=== PATIENT | male | born 1965 | race Caucasian/White ===

== ENCOUNTER → 2024-05-05 13:59 | Outpatient (BNVA) | payer MEDICARE, SELFPAY | PROVIDERS: PCP Nurse Practitioner Family; Referring Provider Nurse Practitioner Family; Visit Provider Podiatrist | DX: B35.1 Tinea unguium (principal); L60.3 Nail dystrophy | CPT/HCPCS: 99204 ==

== ENCOUNTER 2024-06-25 10:10 | Inpatient (IN) | payer MEDICARE, SELFPAY ==
[2024-06-25] VITALS (33 sets, daily range): BP systolic 105–151; BP diastolic 67–109; PULSE 51–69; RESP 10–18; TEMP 36.3–36.6; O2SAT 92–98
--- NOTE | 2024-06-25 10:42 | ED.GENADUL_ITS ---
Discharge Plan Disposition Patient Disposition: Admit to [facility] Condition: Stable Discharge Details Chief Complaint: DrugWithdr/MAT Clinical Impression: Alcohol abuse, Alcohol withdrawal, Benzodiazepine withdrawal Admit Date/Time: 06/25/24 14:19 Admit Provider: Cameron Garza Attending Provider: Cameron Garza Primary Care Provider: Dara Kendrick ED Provider: Magda Michael Discharge Data Discharge Date/Time-TO BE ENTERED AT DEPARTURE: 06/25/24 15:58 HPI General Date/Time Provider Initiated Documentation: 06/25/24 10:42 . Limitations to Documentation: no limitations . Information obtained by: patient, RN/MD ([facility] provider called prior to him coming in) and RN notes reviewed . History of Present Illness 58 year old M presents to the emergency department with the chief complaint of Alcohol and benzodiazepine withdrawal, described as moderate and similar to prior episodes, Patient started experiencing this hour(s) and it has been constant. No relieving factors improve symptom(s), No exacerbating factors reported . Patient notes no other symptoms.. Patient did receive the following treatments prior to arrival, none Related Data Home Medications ?Medication ?Instructions ?Recorded ?Confirmed albuterol sulfate 90 mcg/actuation 2 puff inhalation Q4H 03/10/24 06/25/24 aerosol inhaler (ProAir HFA) buprenorphine 8 mg-naloxone 2 mg 1 film buccal BID 03/10/24 06/25/24 sublingual film (Suboxone) cholecalciferol (vitamin D3) 125 125 mcg PO DAILY 03/10/24 06/25/24 mcg (5,000 unit) capsule clonazepam 1 mg tablet 1 mg PO DAILY 03/10/24 06/25/24 fluticasone propionate 230 2 puff inhalation BID 03/10/24 06/25/24 mcg-salmeterol 21 mcg/actuation HFA inhaler (Advair HFA) fluticasone propionate 50 1 spray intranasal BID 03/10/24 06/25/24 mcg/actuation nasal spray,suspension (Allergy Relief (fluticasone)) gabapentin 400 mg capsule 400 mg PO TID 03/10/24 06/25/24 ipratropium bromide 0.02 % 2.5 ml inhalation BID 03/10/24 06/25/24 solution for inhalation ipratropium bromide 42 mcg (0.06 2 spray intranasal BID 03/10/24 06/25/24 %) nasal spray levothyroxine 150 mcg tablet 150 mcg PO DAILY 03/10/24 06/25/24 lithium carbonate 450 mg 450 mg PO DAILY 03/10/24 06/25/24 tablet,extended release mecobalamin (vitamin B12) 1,000 1,000 mcg PO DAILY 03/10/24 06/25/24 mcg chewable tablet metoprolol succinate 50 mg 100 mg PO DAILY 03/10/24 06/25/24 tablet,extended release 24 hr ketoconazole 2 % topical cream 1 applic topical DAILY #120 grams 05/05/24 06/25/24 buprenorphine 12 mg-naloxone 3 mg 1 film sublingual DAILY 06/25/24 06/25/24 sublingual film olanzapine 5 mg tablet 5 mg PO HS PRN 06/25/24 06/25/24 Previous Rx's ?Medication ?Instructions ?Recorded ketoconazole 2 % topical cream 1 applic topical DAILY #120 grams 05/05/24 Allergies Allergy/AdvReac Type Severity Reaction Status Date / Time ethinyl estradiol (From Allergy Unknown Unknown Verified 03/10/24 10:34 Seasonale (91)) levonorgestrel (From Allergy Unknown Unknown Verified 03/10/24 10:34 Seasonale (91)) phenobarbital Allergy Unknown Unknown Verified 03/10/24 10:34 cats Allergy Unknown Unknown Uncoded 03/10/24 10:34 General Stated Complaint: DrugWithdr/MAT JARVIS: 3 Review of Systems Constitutional Constitutional: Reports as per HPI, Denies fever(s), Denies headache(s) and Denies weakness Eyes Eyes: Denies change in vision ENT Ears, Nose, Mouth, and Throat: Denies headache(s) Cardiovascular Cardiovascular: Reports as per HPI, Denies chest pain, Denies lightheadedness, Denies dyspnea and Denies dyspnea on exertion Respiratory Respiratory: Reports as per HPI, Denies cough, Denies dyspnea and Denies dyspnea on exertion Gastrointestinal Gastrointestinal: Reports as per HPI, Denies abdominal pain, Denies change in bowel habits and Denies vomiting Genitourinary Genitourinary: Denies system reviewed and no additional complaints, except as do cumented (denies any change in urinary habits) Musculoskeletal Musculoskeletal: Denies abnormal gait Integumentary/Breasts Skin/Breast: Reports as per HPI and Denies rash Neurologic Neurologic: Denies abnormal movements, Denies abnormal speech, Denies abnormal gait, Denies headache(s), Denies paresthesias and Denies weakness Exam Const General: cooperative, not healthy appearing, uncomfortable, no acute distress, well developed, well groomed, anxious and ill appearing chronically Nutritional Appearance: average body habitus and well nourished Orientation: alert and awake Eyes General: appearance normal, both eyes and all related structures Resp Effort & Inspection: normal respiratory effort, able to speak in complete sentences and no respiratory distress Auscultation: clear to auscultation bilaterally, no rales, no rhonchi and no wheezes Cardio Rate: regular rate Rhythm: regular rhythm Heart Sounds: S1 normal and S2 normal Skin General skin exam: no rashes or lesions noted Trauma: no lacerations or abrasions Neuro General: patient alert and patient awake Cognition: normal cognition Speech: speech normal Gait: normal gait Psych Appearance: grossly normal Mental Status: mental status grossly normal Speech and Movement: speech and movement normal Mood: anxious mood Affect: anxious affect Attitude: cooperative Thought Process: normal Thought Content: suicidality Insight: limited Judgment: limited Course Vital Signs Vital signs: Vital Signs Temperature 36.6 C 06/25/24 10:18 Pulse 69 06/25/24 10:18 Respiratory Rate 16 06/25/24 10:18 Pulse Oximetry 98 06/25/24 10:18 Temperature 36.6 C 06/25/24 10:18 Pulse 69 06/25/24 10:18 Respiratory Rate 16 06/25/24 10:18 Respiratory Effort Normal 06/25/24 10:22 Pulse Oximetry 98 06/25/24 10:18 Pain Level 0 06/25/24 10:18 Medical Decision Making Patient is a pleasant 58-year-old male with past medical history significant for substance use disorder. He reports that many years ago he had issues with alcohol. Something at that time had also used some amount of benzodiazepines. Was able to get clear from this and began struggling with opioids which he transition to Suboxone. He continues to be on Suboxone feel like this is working well for him. He reports that about 1 year ago he began using benzodiazepines again as initially prescribed by provider. However, he then began buying these on the street to try and increase his dosing he was taking m ore than prescribed. About 2 months ago he began drinking once again and was drinking daily to increase the effect that he was having from benzodiazepines. Patient reports that he has had a history of seizure with withdrawal from benzodiazepines and alcohol. He has not had 1 as of recently. His last drink was last night. He took benzodiazepines at midnight. He states that yesterday he was having suicidal ideations but now that he is in the hospital and feels like he has a well-established plan with us as well as with his mental health provider, he feels safe and is no longer suicidal and does not want to harm himself. Rather, the patient wants to not feel like this anymore and is willing to be admitted to the hospital and/or go to rehab for continued detoxification. On exam, patient appears chronically ill. He does appear tremulous and anxious. He would be associated with alcohol withdrawal. Will treat withdrawal symptoms. Patient does have a history of phenobarbital which is evidence of rash during admission. Again, patient does have history of seizures associated with withdrawal periods. Patient has limited personal insight. Did not believe that he is in acute threat to himself or others. He is quite clear that he is not actively suicidal, I do feel that he is able to speak with mental health at this time but does not require a one-to-one sitter. Will place him on [facility] protocol. Does not appear medically ill aside from his withdrawal symptoms. Labs reviewed. No leukocytosis. Stable H&H. CMP without significant abnormality. No slight elevation of his alk phos at 124. His urine drug screen is significant for positive for benzos and THC. His alcohol is 0. Patient was evaluated by mental health. He did give her a different story regarding suicidality that occurred yesterday. However, she does not feel that he can be thoroughly evaluated at this time and would like to follow-up with him and we will keep him on her list. Patient also has local mental health that patient feels very supported by. However, I do not ensure that patient is able to continue to get mental health care when admitted. I believe patient needs admission for his acute withdrawal, particularly as he has had seizures historically. He has been receiving Ativan thus far given his allergy to phenobarbital. I discussed admission with the patient. He is quite interested in this ultimately hoping to be able to go to a rehabilitation center for continued withdrawal and care of his substance use disorder. Patient does want to continue on the Suboxone and feels that this has been working well for his opioid cravings. Consulted with hospitalist who agrees to admission. Quality:SDOH Health Related Social Needs: No Data to Display PFSH All Active Problems (Updated 06/25/24 @ 17:04 by MAXI Mustafa) Benzodiazepine withdrawal (Acute) Alcohol withdrawal (Acute) Alcohol abuse (Chronic) Nail dystrophy (Acute) Onychomycosis (Acute) Neuropathy (Acute) Toenail fungus (Acute) Right flank pain (Acute) Restless legs (Acute) Recurrent major depressive disorder (Acute) Psychophysiologic insomnia (Acute) Allergic rhinitis (Acute) Alcoholism in remission (Acute) Medical History Amputation finger Suicide attempt Surgical History Hx of circumcision Social History (Updated 06/25/24 @ 16:55 by Cameron Garza) Smoking/Tobacco Use Status: Former Tobacco Use tobacco type: cigarettes Quit Date: 09/10/17 Smoking risk assessment performed?: Yes Alcohol Intake: current Alcohol Intake frequency: 3 or more drinks per day Alcohol type: hard liquor Drug use: Daily Substance use type: sedatives Details: pt reports he drinks 1 pint of vodka every day Housing: apartment Do you feel safe at home: Yes Do you feel safe in your relationship?: Yes Additional Social history: works at [employer] Have you Been Recently Intoxicated or Drunk Within the Last 30 days?: Yes Have you Ever Experienced Previous Episodes of Alcohol Withdrawal?: Yes Have you ever Experienced Withdrawal Seizures?: No Have you ever Experienced Delirium Tremens(DT)s?: No Have you ever undergone Alcohol Rehabilitation Treatment (i.e, inpt ot outpatient treatment programs)?: Yes Have you ever Experienced Blackouts?: Yes Have you ever Combined Alcohol with other Downers within the last 90 days?: Yes Have you ever Combined Alcohol with any other Substance of Abuse during the last 90 days?: No Positive Blood Alcohol level on Presentation? [PCS.BAL]: No Evidence of Increased Autonomic Activity (i.e. HR>120, tremor, sweating, agitation, nausea)?: No Result: 4
[2024-06-25 11:11] LABS: Abs Immature Grans 0.02 10^3/uL (0.0-0.06); Absolute Basophil Count 0.05 10^3/uL (0.0-0.2); Absolute Eosinophil Count 0.09 10^3/uL (0.0-0.7); Absolute Lymphocyte Count 0.96 10^3/uL (1.2-3.4); Absolute Monocyte Count 0.61 10^3/uL (0.1-0.8); Absolute Neutrophil Count 4.57 10^3/uL (1.2-6.7); Basophils % 0.8 %; Eosinophils % 1.4 %; HCT 44.4 % (40.0-50.0); HGB 14.6 g/dL (13.5-17.5); Immature Grans % 0.3 %; Lymphocytes % 15.2 %; MCH 31.4 pg (27.0-33.0); MCHC 32.9 % (32.0-36.0); MCV 96 fL (80-95); MPV 10.6 fL (8.0-11.0); Monocytes % 9.7 %; Neutrophils % 72.6 %; Platelet Count 154 10^3/uL (130-400); RBC 4.65 10^6/uL (4.36-5.78); RDW 12.4 % (11.8-14.1); RDW-SD 43.1 fL
[2024-06-25 11:26] LABS: ETHANOL BLOOD < 3.0 mg/dL (<10)
[2024-06-25 11:29] LABS: ALT 33 U/L (16-63); AST 24 U/L (15-37); Albumin 4.1 g/dL (3.4-5.0); Alkaline Phosphatase 124 U/L (46-116); Anion Gap 7.5 mmol/L (3-11); BUN 15 mg/dL (7-18); Bilirubin, Total 0.73 mg/dL (0.2-1.0); CO2 29.5 mmol/L (21.0-32.0); CREATININE 0.9 mg/dL (0.70-1.30); Calcium 9.4 mg/dL (8.5-10.1); Chloride 103 mmol/L (98-107); Glucose 111 mg/dL (74-106); Magnesium 2.1 mg/dL (1.8-2.4); Potassium 4.5 mmol/L (3.5-5.1); Sodium 140 mmol/L (136-145); Total Protein 8.1 g/dL (6.4-8.2)
[2024-06-25 11:38] LABS: *AMPHETAMINES SCREEN URINE Negative (Negative); *BARBITURATES SCREEN URINE Negative (Negative); *BENZODIAZEPINES SCREEN URINE Positive (Negative); Cannabinoids THC Positive (Negative); Cocaine Screen,Urine Negative (Negative); METHADONE URINE SCREEN Negative (Negative); OPIATES URINE SCREEN Negative (Negative)
[2024-06-25 11:40] LABS: Lithium 0.8 mmol/L (0.6-1.2); Salicylate < 2.8 mg/dL (<2.8)
[2024-06-25 11:41] LABS: Tricyclic Antidepressants Negative (Negative)
[2024-06-25 11:41] LABS: Acetaminophen < 2 ug/mL (10-30)
[2024-06-25] MEDS: LORazepam 2 MG/ML VIAL 1 MG IVP (12:08)
[2024-06-25] MEDS: Lactated Ringers 1,000 ML 1000 ML IV (12:08)
[2024-06-25] MEDS: LORazepam 2 MG/ML VIAL IVP (13:32)
--- NOTE | 2024-06-25 15:54 | W.PC.ACHO ---
Registration Status: Primary Language: Preferred Language: ED Information & Data Chief Complaint DrugWithdr/MAT 06/25/24 11:21 Triage Note pt here in withdrawal from 06/25/24 10:18 benzos, last drink was yesterday-was drinking every day before that for 1-2 months. pt reports taking 10 mg clonazepam daily and 10 mg valium daily for 1 week. these meds are prescribed by MD but pt taking more than prescribed. pt reports he takes handfuls and he doesn' t feel any affects from them anymore. Medical / Surgical History (Last Reviewed 05/05/24 @ 14:23 by Yen Mccarty DPM) Amputation finger Suicide attempt (Last Reviewed 05/05/24 @ 14:23 by Yen Mccarty DPM) Hx of circumcision Most Recent Vital Signs Temperature 36.6 C 06/25/24 10:18 Pulse 62 06/25/24 13:16 Pulse 57 L 06/25/24 15:40 Respiratory Rate 14 06/25/24 15:40 Respiratory Effort Normal 06/25/24 10:22 Respiratory Pattern Normal 06/25/24 11:06 Blood Pressure 145/89 H 06/25/24 13:16 Blood Pressure Mean 105 06/25/24 13:16 Pulse Oximetry 98 06/25/24 13:10 Pain Level 0 06/25/24 10:18 Allergies ethinyl estradiol (From ()) Allergy (Unknown, Verified 03/10/24 10:34) Unknown levonorgestrel (From (91)) Allergy (Unknown, Verified 03/10/24 10:34) Unknown phenobarbital Allergy (Unknown, Verified 03/10/24 10:34) Unknown cats Allergy (Unknown, Uncoded 03/10/24 10:34) Unknown IV IV Catheter Gauge [Right 18 Antecubital] Diet Orders Category Date Time Status Regular/Normal [DIET] Nutrition 06/25/24 Dinner Active Diagnostics 06/25/24 06/25/24 Range/Units 11:04 11:03 WBC 6.30 (4.4-10.8) 10^3/uL RBC 4.65 (4.36-5.78) 10^6/uL Hgb 14.6 (13.5-17.5) g/dL Hct 44.4 (40.0-50.0) % MCV 96 H (80-95) fL MCH 31.4 (27.0-33.0) pg MCHC 32.9 (32.0-36.0) % RDW 12.4 (11.8-14.1) % Plt Count 154 (130-400) 10^3/uL MPV 10.6 (8.0-11.0) fL Immature Gran % 0.3 % Neutrophils % 72.6 % Lymphocytes % 15.2 % Monocytes % 9.7 % Eosinophils % 1.4 % Basophils % 0.8 % Nucleated RBC % 0.0 (0.0-0.3) % Absolute Neutrophils 4.57 (1.2-6.7) 10^3/uL Absolute Lymphocytes 0.96 L (1.2-3.4) 10^3/uL Absolute Monocytes 0.61 (0.1-0.8) 10^3/uL Absolute Eosinophils 0.09 (0.0-0.7) 10^3/uL Absolute Basophils 0.05 (0.0-0.2) 10^3/uL Sodium 140 (136-145) mmol/L Potassium 4.5 (3.5-5.1) mmol/L Chloride 103 (98-107) mmol/L Carbon Dioxide 29.5 (21.0-32.0) mmol/L Anion Gap 7.5 (3-11) mmol/L BUN 15 (7-18) mg/dL Creatinine 0.9 (0.70-1.30) mg/dL Est GFR (CKD-EPI 2020) 99.00 (mL/min/1.73m2) Glucose 111 H (74-106) mg/dL Calcium 9.4 (8.5-10.1) mg/dL Magnesium 2.1 (1.8-2.4) mg/dL Total Bilirubin 0.73 (0.2-1.0) mg/dL AST 24 (15-37) U/L ALT 33 (16-63) U/L Alkaline Phosphatase 124 H (46-116) U/L Total Protein 8.1 (6.4-8.2) g/dL Albumin 4.1 (3.4-5.0) g/dL Salicylates < 2.8 (<2.8) mg/dL Urine Opiates Screen Negative (Negative) Urine Methadone Screen Negative (Negative) Acetaminophen < 2 (10-30) ug/mL Ur Barbiturates Screen Negative (Negative) Ur Tricyclics Screen Negative (Negative) Ur Amphetamines Screen Negative (Negative) U Benzodiazepines Scrn Positive A (Negative) [place] 0.8 (0.6-1.2) mmol/L Urine Cocaine Screen Negative (Negative) Ur THC Screen Positive A (Negative) Ethyl Alcohol < 3.0 (<10) mg/dL Intake and Output - 24 Hour Total 06/25/24 10:10 thru 06/25/24 10:18 Weight 96.162 kg Falls Risk Assessment History of Falls Fall During Stay 06/25/24 11:09 Contributing Factors Impairments 06/25/24 11:09 Ambulatory Aids Independent 06/25/24 11:09 Tubes/Lines W/no contributing factors 06/25/24 11:09 Gait Evaluation No gait disturbance 06/25/24 11:09 Fall Total Score 38 06/25/24 11:09 Level of Risk Moderate Risk 06/25/24 11:09 v v v v v v v v v Sending and/or Receiving Nurses: Please use comment section below to note any information pertinent to the patient hand-off not included above. Information / Comments: Report received from: Lisa Duval RN
[2024-06-25] MEDS: Acetaminophen 325 MG TAB PO ×2 (16:27→21:50)
--- NOTE | 2024-06-25 16:46 | W.PM.HP.N ---
Date of service: 06/25/24 Time of Service: 16:46 Assessment and Plan Assessment and plan (1) Benzodiazepine withdrawal: Status: Acute Assessment and plan: Complicated benzodiapine and alcohol history, now in withdrawal. Given heavy use and history of seizures, I will give 15mg of diazepam now and schedule 10mg TID for the next 24 hours along with withdrawal protocol phenobarbitol is not an option with his allergy He is alert and hemodynamically stable, tele monitor but okay for floor now. (2) Alcohol withdrawal: Status: Acute Assessment and plan: as above. (3) Bipolar depression: Status: Acute Assessment and plan: [place] is therapeutic, continue his prevoius dosing. Get TSH. Continue gabapentin, which may also mitigate some risk of seizures with benzo withdrawal. (4) Alcohol abuse: Status: Chronic Assessment and plan: Consider campryl, non-pharmacologic management when he is ready for discharge. (5) Elbow pain, left: Status: Acute Assessment and plan: He may have a fracture while intoxicated, get XR (6) Opioid use disorder, moderate, in sustained remission, dependence: Assessment and plan: Stable on suboxone per report, continue outpatient dosing. (7) Allergic rhinitis: Status: Acute Assessment and plan: continue outpatient nasal therapy (8) Hypertension: Assessment and plan: continue metoprolol. (9) DVT prophylaxis: Status: Acute Assessment and plan: Not high risk, SCDs for now History of Present Illness History of Present Illness Chief Complaint: benzodiazepine withdrawal Narrative: 58 yo man with bipolar depression, opioid use disorder, alcohol use disorder, and chronic escalating benzodiazepine use presented to the emergency room after taking his last benzodiazepines about midnight the previous night. He states he took up to 4mg of clonezepam per day including yesterday, last night also took 20mg diazepam at the same time. He is also drinking alcohol, a pint a day, which he last did yesterday to last night. Despite all this he did not sleep. He has been fretting over coming to the hospital but he finally did. He would like to get off the benzodiazepines. Right now he is in pain all over his body, very anxious and uncomfortable. Lorazepam 1-2mg given in the ED barely helped. He does confirm he has had withdrawal seizure back in 2006 when he was getting started on suboxone for the first time, stopped his clonezepam and did not tell the doctors he was taking it. He has not taken opioids other than suboxone in years. He doesn't use other drugs, though he gets his benzos from the street when he can't get them from presribers. He has been having suicidal thoughts, but doesn't want to . He just doesn't want to go on living like he is. He feels safe here, denies current thoughts of self harm. Review of Systems All systems reviewed & are unremarkable except as noted in HPI and below Gastrointestinal Gastrointestinal: Denies melena, Denies hematochezia, Denies change in stool character, Denies diarrhea, Reports loose stools, Reports nausea and Denies vomiting Genitourinary Genitourinary: Denies hematuria, Denies dysuria, Reports urinary hesitancy and Denies urinary incontinence Musculoskeletal Musculoskeletal: Reports arthralgias (left elbow, fell against dresser yesterday. Can't use elbow well since.) Neurologic Neurologic: Denies confusion, Denies localized weakness, Denies memory loss and Denies sensory deficit Psychiatric Psychiatric: Reports as per HPI, Denies confusion, Reports hopelessness, Denies memory loss, Denies visual hallucinations and Denies hallucinations PFSH All Active Problems (Updated 06/25/24 @ 17:08 by Cameron Garza) DVT prophylaxis (Acute) Elbow pain, left (Acute) Bipolar depression (Acute) Benzodiazepine withdrawal (Acute) Alcohol withdrawal (Acute) Alcohol abuse (Chronic) Nail dystrophy (Acute) Onychomycosis (Acute) Neuropathy (Acute) Toenail fungus (Acute) Right flank pain (Acute) Restless legs (Acute) Recurrent major depressive disorder (Acute) Psychophysiologic insomnia (Acute) Allergic rhinitis (Acute) Alcoholism in remission (Acute) Medical History (Updated 06/25/24 @ 17:08 by Cameron Garza) Hypertension Opioid use disorder, moderate, in sustained remission, dependence Amputation finger Suicide attempt Surgical History Hx of circumcision Social History (Updated 06/25/24 @ 16:55 by Cameron Garza) Smoking/Tobacco Use Status: Former Tobacco Use tobacco type: cigarettes Quit Date: 09/10/17 Smoking risk assessment performed?: Yes Alcohol Intake: current Alcohol Intake frequency: 3 or more drinks per day Alcohol type: hard liquor Drug use: Daily Substance use type: sedatives Details: pt reports he drinks 1 pint of vodka every day Housing: apartment Do you feel safe at home: Yes Do you feel safe in your relationship?: Yes Additional Social history: works at [employer] Med[employer] Allergies and Home Medications Allergies Allergy/AdvReac Type Severity Reaction Status Date / Time ethinyl estradiol (From Allergy Unknown Unknown Verified 03/10/24 10:34 [place] (91)) levonorgestrel (From Allergy Unknown Unknown Verified 03/10/24 10:34 [place] (91)) phenobarbital Allergy Unknown Unknown Verified 03/10/24 10:34 cats Allergy Unknown Unknown Uncoded 03/10/24 10:34 Home Medications ?Medication ?Instructions ?Recorded ?Confirmed ?Type albuterol sulfate 90 mcg/actuation 2 puff inhalation Q4H 03/10/24 06/25/24 History aerosol inhaler (ProAir HFA) buprenorphine 8 mg-naloxone 2 mg 1 film buccal BID 03/10/24 06/25/24 History sublingual film (Suboxone) cholecalciferol (vitamin D3) 125 125 mcg PO DAILY 03/10/24 06/25/24 History mcg (5,000 unit) capsule clonazepam 1 mg tablet 1 mg PO DAILY 03/10/24 06/25/24 History fluticasone propionate 230 2 puff inhalation BID 03/10/24 06/25/24 History mcg-salmeterol 21 mcg/actuation HFA inhaler (Advair HFA) fluticasone propionate 50 1 spray intranasal BID 03/10/24 06/25/24 History mcg/actuation nasal spray,suspension (Allergy Relief (fluticasone)) gabapentin 400 mg capsule 400 mg PO TID 03/10/24 06/25/24 History ipratropium bromide 0.02 % 2.5 ml inhalation BID 03/10/24 06/25/24 History solution for inhalation ipratropium bromide 42 mcg (0.06 2 spray intranasal BID 03/10/24 06/25/24 History %) nasal spray levothyroxine 150 mcg tablet 150 mcg PO DAILY 03/10/24 06/25/24 History lithium carbonate 450 mg 450 mg PO DAILY 03/10/24 06/25/24 History tablet,extended release mecobalamin (vitamin B12) 1,000 1,000 mcg PO DAILY 03/10/24 06/25/24 History mcg chewable tablet metoprolol succinate 50 mg 100 mg PO DAILY 03/10/24 06/25/24 History tablet,extended release 24 hr ketoconazole 2 % topical cream 1 applic topical DAILY #120 grams 05/05/24 06/25/24 Rx buprenorphine 12 mg-naloxone 3 mg 1 film sublingual DAILY 06/25/24 06/25/24 History sublingual film olanzapine 5 mg tablet 5 mg PO HS PRN 06/25/24 06/25/24 History Exam Narrative Exam Narrative: GEN: Alert and oriented x 4, though uncomfortable. He is pleasant and cooperative, gives linear history. Moderate emotional acute distress at rest. HEENT: Head atraumatic. Conjunctiva clear, no icterus. PEERL, EOMI. no rhinorrhea. MMM, OP benign. Neck is supple with no masses or lymphadenopathy, trachea midline LUNGS: CTAB with normal effort CV: RRR with no murmurs, gallops, or rubs. ABD: active bowel sounds, soft, nontender and nondistended. No masses. EXT: no cyanosis, clubbing, or edema MSK: No joint redness or swelling. Left elbow tender, he is not able to extend past 20 degrees due to pain NEURO: CN 2-12 grossly intact. Normal movement of 4 extremities. Normal speech and coordination. Gait is stable. Moderated tremor. SKIN: No rashes or open wounds. Old healed linear scares on forearms. PSYCH: Depressed and anxious mood and affect. normal thought process Results Labs 06/25/24 11:03 06/25/24 11:03 Labs: Laboratory Results - last 24 hr 06/25/24 06/25/24 11:03 11:04 WBC 6.30 RBC 4.65 Hgb 14.6 Hct 44.4 MCV 96 H MCH 31.4 MCHC 32.9 RDW 12.4 Plt Count 154 MPV 10.6 Immature Gran % 0.3 Neutrophils % 72.6 Lymphocytes % 15.2 Monocytes % 9.7 Eosinophils % 1.4 Basophils % 0.8 Nucleated RBC % 0.0 Absolute Neutrophils 4.57 Absolute Lymphocytes 0.96 L Absolute Monocytes 0.61 Absolute Eosinophils 0.09 Absolute Basophils 0.05 Sodium 140 Potassium 4.5 Chloride 103 Carbon Dioxide 29.5 Anion Gap 7.5 BUN 15 Creatinine 0.9 Est GFR (CKD-EPI 2021) 99.00 Glucose 111 H Calcium 9.4 Magnesium 2.1 Total Bilirubin 0.73 AST 24 ALT 33 Alkaline Phosphatase 124 H Total Protein 8.1 Albumin 4.1 Salicylates < 2.8 Urine Opiates Screen Negative Urine Methadone Screen Negative Acetaminophen < 2 Ur Barbiturates Screen Negative Ur Tricyclics Screen Negative Ur Amphetamines Screen Negative U Benzodiazepines Scrn Positive A [place] 0.8 Urine Cocaine Screen Negative Ur THC Screen Positive A Ethyl Alcohol < 3.0 Last Vital Signs Temp 36.3 C L 06/25/24 15:59 Pulse 64 06/25/24 15:59 Resp 18 06/25/24 15:59 BP 133/87 06/25/24 15:59 Pulse Ox 97 06/25/24 15:59 PAWSS Have you Been Recently Intoxicated or Drunk Within the Last 30 days?: Yes Have you Ever Experienced Previous Episodes of Alcohol Withdrawal?: Yes Have you ever Experienced Withdrawal Seizures?: No Have you ever Experienced Delirium Tremens(DT)s?: No Have you ever undergone Alcohol Rehabilitation Treatment (i.e, inpt ot outpatient treatment programs)?: Yes Have you ever Experienced Blackouts?: Yes Have you ever Combined Alcohol with other Downers within the last 90 days?: Yes Have you ever Combined Alcohol with any other Substance of Abuse during the last 90 days?: No Positive Blood Alcohol level on Presentation? [PCS.BAL]: No Evidence of Increased Autonomic Activity (i.e. HR>120, tremor, sweating, agitation, nausea)?: No Result: 4 Time Spent Time spent with Patient: >75 minutes Time was spent: preparing to see the patient(eg.review tests), obtaining and/or reviewing separately otained hiistory, ordering medications,tests, procedures, referring, communicating with other health respiratory care program director, indepentently interpreting results, counseling the patient and care coordination
[2024-06-25] MEDS: diazePAM 5 MG TAB 15 MG PO (16:48)
--- NOTE | 2024-06-25 17:00 | PHA.REVIEW2 ---
Pharmacy Admission Review Admission Clinical Review Admission Pharmacy Review: ethinyl estradiol (From ()) Allergy (Unknown, Verified 03/10/24 10:34) Unknown levonorgestrel (From (91)) Allergy (Unknown, Verified 03/10/24 10:34) Unknown phenobarbital Allergy (Unknown, Verified 03/10/24 10:34) Unknown cats Allergy (Unknown, Uncoded 03/10/24 10:34) Unknown Resuscitation Status Full Code Height 6 ft 1 in Weight 100.1 kg Pharmacy Admission Review Renal Dosing Renal Dosing: BUN 15 mg/dL (7-18) 06/25/24 11:03 Creatinine 0.9 mg/dL (0.70-1.30) 06/25/24 11:03 Medications needing adjustments: Reviewed (CrCl 111.3 mL/min) List of meds needing interventions: Current medications are okay Anticoagulation Anticoagulation: Hgb 14.6 g/dL (13.5-17.5) 06/25/24 11:03 Hct 44.4 % (40.0-50.0) 06/25/24 11:03 Plt Count 154 10^3/uL (130-400) 06/25/24 11:03 Creatinine 0.9 mg/dL (0.70-1.30) 06/25/24 11:03 DVT Prophylaxis: Reviewed (SCDs) Relevant Labs Relevant Labs: Sodium 140 mmol/L (136-145) 06/25/24 11:03 Potassium 4.5 mmol/L (3.5-5.1) 06/25/24 11:03 Chloride 103 mmol/L (98-107) 06/25/24 11:03 Magnesium 2.1 mg/dL (1.8-2.4) 06/25/24 11:03 Electrolytes, C-Reactive P, ESR: Reviewed (glucose 111) Cardiac Review BP, HR, EF%: Intervened (HR and BP WNL) List meds needing interventions: Has order for metoprolol XL 100mg daily. Reached out to provider as prescription on external fill history says 50mg XL BID PRN. Provider would like to keep order as 100mg daily. QTc Review QTc: Reviewed (No EKG on file) IV to PO Switch IV Medications: Reviewed Home Meds Home Med List reviewed: Intervened Relevent Home Meds Not ordered & why?: Advair (substituted with Symbicort per pharmacy protocol) and clonazepam (has order for diazepam and lorazepam) Spoke with provider regarding lithium order. Fill history shows last fill as 09/10/23, but per provider patient has been getting via inpatient setting and that levels are therapeutic. Current Meds Current Medication Order Review: Intervened Comments: Verified that provider does want both lorazepam (PRN for CIWA) and scheduled diazepam. Plan is to cut diazepam per provider. Changed timing of levothyroxine from 0830 to 0600 per pharmacy protocol Added IV admission order set
[2024-06-25] MEDS: LORazepam 1 MG TAB PO/SL ×3 (17:59→21:50)
[2024-06-25] MEDS: Budesonide/Formoterol 160/4.5 6 GM 60 PUFF INH IH (19:17)
[2024-06-25] MEDS: diazePAM 5 MG TAB 10 MG PO (19:58)
[2024-06-25] MEDS: Gabapentin 800 MG TAB PO (19:58)
[2024-06-25] MEDS: Normal Saline Flush 10 ML SYR IVP (19:59)
[2024-06-25] MEDS: OLANZapine 5 MG TAB PO (21:56)
[2024-06-25] MEDS: Buprenorphine/Naloxone 8 mg/2 mg FILM 1 EACH SL (23:35)
[2024-06-26] MEDS: LORazepam 1 MG TAB PO/SL ×9 (01:08→23:05)
[2024-06-26 03:01] VITALS: BP 104/75; PULSE 51; RESP 14; TEMP 36.2; O2SAT 95
[2024-06-26] MEDS: Levothyroxine 75 MCG TAB 150 MCG PO (05:10)
[2024-06-26 06:56] LABS: Prothrombin Time 10.4 sec (9.1-11.1)
[2024-06-26 07:03] LABS: ALT 26 U/L (16-63); AST 20 U/L (15-37); Albumin 3.2 g/dL (3.4-5.0); Alkaline Phosphatase 110 U/L (46-116); Anion Gap 8.8 mmol/L (3-11); BUN 11 mg/dL (7-18); Bilirubin, Total 0.73 mg/dL (0.2-1.0); CO2 30.2 mmol/L (21.0-32.0); CREATININE 0.8 mg/dL (0.70-1.30); Calcium 8.7 mg/dL (8.5-10.1); Chloride 106 mmol/L (98-107); Estimated GFR 102.58 (mL/min/1.73m2); Glucose 101 mg/dL (74-106); Magnesium 2.1 mg/dL (1.8-2.4); Potassium 4.5 mmol/L (3.5-5.1); Sodium 145 mmol/L (136-145); Total Protein 6.5 g/dL (6.4-8.2)
[2024-06-26 07:52] VITALS: BP 117/72; PULSE 52; RESP 16; TEMP 36.4; O2SAT 95
[2024-06-26] MEDS: Thiamine 100 MG TAB PO (09:18)
[2024-06-26] MEDS: Gabapentin 800 MG TAB PO ×3 (09:18→20:17)
[2024-06-26] MEDS: Cholecalciferol (Vitamin D3) 1,000 UNIT TAB 5000 UNITS PO (09:18)
[2024-06-26] MEDS: Folic Acid 1 MG TAB PO (09:19)
[2024-06-26] MEDS: diazePAM 5 MG TAB 10 MG PO ×3 (09:19→20:17)
[2024-06-26] MEDS: Cyanocobalamin 500 MCG TAB 1000 MCG PO (09:19)
[2024-06-26] MEDS: Buprenorphine/Naloxone 12 mg/3 mg FILM 1 EACH SL (09:19)
[2024-06-26] MEDS: Multivitamin TAB 1 TAB PO (09:19)
[2024-06-26] MEDS: Normal Saline Flush 10 ML SYR IVP ×2 (09:20→20:18)
--- NOTE | 2024-06-26 10:56 | DI.RAD_ITS ---
Exam(s) XR ELBOW LT COMPLETE EXAM: XR ELBOW LT COMPLETE CLINICAL HISTORY: fall, left elbow pain, cannot extend fully. TECHNIQUE: 2D digital imaging was performed of the left elbow. Three images were obtained. AP, lat eral and oblique views were obtained. COMPARISON: No exams were available for comparison FINDINGS: BONES: On the lateral view there is a lucency through the coronoid process suspicious for nondisplace d fracture. No bony destructive lesion is seen. There is a smooth contour of the articular surface o f the radial head. JOINTS: The elbow is normally aligned. There is a joint effusion present. SOFT TISSUE: Normal. IMPRESSION: Nondisplaced fracture through the coronoid process of the proximal ulna with a joint effusion. DATA REPOSITORY: RADIATION DOSE DELIVERED:
--- NOTE | 2024-06-26 11:06 | PDOC.CMIN ---
Date of service: 06/26/24 Time of Service: 11:06 Care Management Initial Assmt Initial Assessment Reason for Hospitalization: Benzodiazepine and ETOH withdrawal Functional Status/Living Situation Patient Presentation: Cameron is sitting up in bed in the dark when CM met with him. He is difficult to engage in conversation, he is shaky and worried he may loose his job. 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 He left a voice mail for his employer today and has called Danika at [facility] several times asking about the status of his FMLA. Cameron asked that I reach out to Danika for an update. Danika advised that she contacted [facility] and was notified today by fax that he does not qualify because he works communications department head. Danika will send over the fax for his records. Town of Residence: [place] Resides with: Alone Employment Status: Employed Instrumental Activities of Daily Living (ADLs): Independent Medications Medication Management: Issues/Barriers (Medication compliance) with Instructions/Directions Physical Functioning/Mobility Assistive Device: None Advance Directives Advance Directives: Do you have an Advance Directive: AD On File at [facility]: N 01/14/24 14:47 Date Asked 06/25/24 06/25/24 10:15 AD Date Reviewed COLST On File at [facility] COLST Date Scanned Code Status Resuscitation Status Full Code Portal Pt does not currently have a portal and education provided: Yes Insurance Coverage/Financial Issues Insurance: [place] of [place] Financial Issues: Patient is worried about losing his job. 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 Care Team Visit Care Team Role Provider Type Dara Kendrick Primary Care Provider NON-[facility] STAFF PHYSICIAN MAXI Mustafa Emergency Provider PHYSICIANS CUSTODY OFFICER Cameron Garza Admit Provider [facility] STAFF PHYSICIAN Attending Provider Discharge Potential Discharge Needs: PCP F/U Appt Anticipated Barriers to Discharge: Medical Status Patient/Family Education Needs: Review discharge instructions, discuss Ask Me Three Transportation: Private vehicle Plan: Cameron is being monitored and treated for withdrawal. He is shaky and scoring on CIWA. He wants to discharge directly to a rehab facility for his substance abuse. CALLUM advised Cameron that he will be the one making the phone calls, when he's ready and this info is distressing to him. He is tearful and advises that he cannot make decisions now. He is a new patient if [facility] and connected with Shawn. His car is in the parking lot. He may benefit from a [facility] consult. CM will follow. PFSH All Active Problems (Updated 06/25/24 @ 17:08 by Cameron Garza) DVT prophylaxis (Acute) Elbow pain, left (Acute) Bipolar depression (Acute) Benzodiazepine withdrawal (Acute) Alcohol withdrawal (Acute) Alcohol abuse (Chronic) Nail dystrophy (Acute) Onychomycosis (Acute) Neuropathy (Acute) Toenail fungus (Acute) Right flank pain (Acute) Restless legs (Acute) Recurrent major depressive disorder (Acute) Psychophysiologic insomnia (Acute) Allergic rhinitis (Acute) Alcoholism in remission (Acute) Medical History (Updated 06/25/24 @ 17:08 by Cameron Garza) Hypertension Opioid use disorder, moderate, in sustained remission, dependence Amputation finger Suicide attempt Surgical History Hx of circumcision Social History (Updated 06/25/24 @ 16:55 by Cameron Garza) Smoking/Tobacco Use Status: Former Tobacco Use tobacco type: cigarettes Quit Date: 09/10/17 Smoking risk assessment performed?: Yes Alcohol Intake: current Alcohol Intake frequency: 3 or more drinks per day Alcohol type: hard liquor Drug use: Daily Substance use type: sedatives Details: pt reports he drinks 1 pint of vodka every day Housing: apartment Do you feel safe at home: Yes Do you feel safe in your relationship?: Yes Additional Social history: works at [employer] SDOH(Care Management) Screening Will the Patient Participate in the Screening?: Yes Do you worry about having a steady place to live?: no Problems where you live: no known problems In the past 12 months, have you had to go without electric, gas, oil or water in your home?: no Have you or anyone in your house had to go without enough food to eat?: no Has lack of transportation kept you from medical appointments or from doing things needed for daily living?: no Has anyone in your support network made you feel unsafe for any reason?: no Social Determinants of Health Comments(SDOH Details): worry d/t being in here for income
[2024-06-26 11:28] VITALS: BP 121/82; PULSE 64; RESP 15; TEMP 36.4; O2SAT 95
[2024-06-26] MEDS: Acetaminophen 325 MG TAB PO ×2 (14:05→23:04)
[2024-06-26] MEDS: Ketoconazole 2% CREAM 15 GM TUBE TP (14:34)
--- NOTE | 2024-06-26 14:39 | W.PM.PROGNOT ---
Date of Service Date of service: 06/26/24 Time of Service: 14:50 Assessment and Plan Assessment and plan (1) Benzodiazepine withdrawal: Status: Acute Assessment and plan: Complicated benzodiapine and alcohol history, now in withdrawal. Given heavy use and history of seizures, I will gave 15mg of diazepam at admission and and scheduled 10mg TID for the first 24 hours along with lorazepam withdrawal protocol. He needed additional dosing at the time of my exam but has not scored consistently high enough for ICU transfer. Continue current plan on floor now, tele and seizure precautions. (2) Alcohol withdrawal: Status: Acute Assessment and plan: as above. (3) Bipolar depression: Status: Acute Assessment and plan: [place] is therapeutic, continue his prevoius dosing. Get TSH. Continue gabapentin, which may also mitigate some risk of seizures with benzo withdrawal. (4) Left ulnar fracture: Status: Acute Assessment and plan: x-ray confirms fracture. Non-displaced so likely conservative management, but will request ortho consult to guide management and follow up. (5) Alcohol abuse: Status: Chronic Assessment and plan: Consider campryl, non-pharmacologic management when he is ready for discharge. (6) Opioid use disorder, moderate, in sustained remission, dependence: Assessment and plan: Stable on suboxone per report, continue outpatient dosing. (7) Allergic rhinitis: Status: Acute Assessment and plan: continue outpatient nasal therapy (8) Hypertension: Assessment and plan: continue metoprolol. (9) DVT prophylaxis: Status: Acute Assessment and plan: Not high risk, SCDs for now Subjective Subjective Patient reports: tolerating a regular diet and voiding w/o difficulty (voiding, but some hesistancy); denies vomiting, shortness of breath or fever Interval history since last seen: He was able to get some sleep last night, but still very uncomfortable this morning. He last got lorazepam about an hour before I saw him at about 10am. His elbow hurts still, XR wasn't done yet at that time. Exam Narrative Exam Narrative: GEN: Alert and oriented x 4, though uncomfortable, a little flushed and tremulous. Appropriate and cooperative. HEENT: Conjunctiva clear, no icterus, MMM LUNGS: CTAB with normal effort CV: RRR with no murmurs, gallops, or rubs. ABD: active bowel sounds, soft, nontender and nondistended. No masses. EXT: no cyanosis, clubbing, or edema MSK: Left elbow tender, mild swelling, he is not able to extend past 20 degrees due to pain. not hot/red NEURO: nl sensation and movement of right hand. tremor as above. PSYCH: Depressed and anxious mood and affect. normal thought process, no hallucinations Objective Last Vital Signs Temp 36.4 C L 06/26/24 11:28 Pulse 64 06/26/24 11:28 Resp 15 06/26/24 11:28 BP 121/82 06/26/24 11:28 Pulse Ox 95 06/26/24 11:28 Laboratory Results - last 24 hr 06/26/24 05:54 PT 10.4 INR 1.0 Sodium 145 Potassium 4.5 Chloride 106 Carbon Dioxide 30.2 Anion Gap 8.8 BUN 11 Creatinine 0.8 Est GFR (CKD-EPI 2020) 102.58 Glucose 101 Calcium 8.7 Magnesium 2.1 Total Bilirubin 0.73 AST 20 ALT 26 Alkaline Phosphatase 110 Total Protein 6.5 Albumin 3.2 L PAWSS Have you Been Recently Intoxicated or Drunk Within the Last 30 days?: Yes Have you Ever Experienced Previous Episodes of Alcohol Withdrawal?: Yes Have you ever Experienced Withdrawal Seizures?: No Have you ever Experienced Delirium Tremens(DT)s?: No Have you ever undergone Alcohol Rehabilitation Treatment (i.e, inpt ot outpatient treatment programs)?: Yes Have you ever Experienced Blackouts?: Yes Have you ever Combined Alcohol with other Downers within the last 90 days?: Yes Have you ever Combined Alcohol with any other Substance of Abuse during the last 90 days?: No Positive Blood Alcohol level on Presentation? [PCS.BAL]: No Evidence of Increased Autonomic Activity (i.e. HR>120, tremor, sweating, agitation, nausea)?: No Result: 4 Time Spent with Patient Time Spent with Patient: 35-49 minutes Time was spent: preparing to see the patient(eg.review tests), obtaining and/or reviewing separately otained hiistory, ordering medications,tests, procedures, referring, communicating with other health home care companion, indepentently interpreting results, counseling the patient and care coordination
[2024-06-26 15:00] VITALS: BP 113/73; PULSE 57; RESP 16; TEMP 36.3; O2SAT 94
--- NOTE | 2024-06-26 16:36 | OCONE_ITS ---
Date of service: 06/26/24 Time of Service: 16:38 Assessment and Plan Assessment and plan (1) Left ulnar fracture: Status: Acute Assessment and plan: 58-year-old male with multiple significant challenging medical and social problems admitted to the hospital for benzodiazepine withdrawal found to have left elbow pain and moderately sized, mildly displaced left elbow coronoid fracture. Elbow joint appears reduced. No other fractures appreciated. Recommend elevating/resting elbow on pillows while in bed. Sling when out of bed and ambulatory. Encouraged gentle range of motion about the elbow. Light use of the left upper extremity for ADLs okay. Outpatient follow-up with orthopedic surgery 1-2 weeks. PFSH All Active Problems (Updated 06/26/24 @ 14:57 by Cameron Garza) Left ulnar fracture (Acute) DVT prophylaxis (Acute) Elbow pain, left (Acute) Bipolar depression (Acute) Benzodiazepine withdrawal (Acute) Alcohol withdrawal (Acute) Alcohol abuse (Chronic) Nail dystrophy (Acute) Onychomycosis (Acute) Neuropathy (Acute) Toenail fungus (Acute) Right flank pain (Acute) Restless legs (Acute) Recurrent major depressive disorder (Acute) Psychophysiologic insomnia (Acute) Allergic rhinitis (Acute) Alcoholism in remission (Acute) Medical History (Updated 06/26/24 @ 14:57 by Cameron Garza) Hypertension Opioid use disorder, moderate, in sustained remission, dependence Amputation finger Suicide attempt Surgical History Hx of circumcision Social History (Updated 06/25/24 @ 16:55 by Cameron Garza) Smoking/Tobacco Use Status: Former Tobacco Use tobacco type: cigarettes Quit Date: 09/10/17 Smoking risk assessment performed?: Yes Alcohol Intake: current Alcohol Intake frequency: 3 or more drinks per day Alcohol type: hard liquor Drug use: Daily Substance use type: sedatives Details: pt reports he drinks 1 pint of vodka every day Housing: apartment Do you feel safe at home: Yes Do you feel safe in your relationship?: Yes Additional Social history: works at [employer] Results Last Vital Signs Temp 97.3 F L 06/26/24 15:00 Pulse 57 L 06/26/24 15:00 Resp 16 06/26/24 15:00 BP 113/73 06/26/24 15:00 Pulse Ox 94 06/26/24 15:00 Labs 06/25/24 11:03 10/17/24 05:54 Labs: Laboratory Results - last 24 hr 06/26/24 05:54 PT 10.4 INR 1.0 Sodium 145 Potassium 4.5 Chloride 106 Carbon Dioxide 30.2 Anion Gap 8.8 BUN 11 Creatinine 0.8 Est GFR (CKD-EPI 2020) 102.58 Glucose 101 Calcium 8.7 Magnesium 2.1 Total Bilirubin 0.73 AST 20 ALT 26 Alkaline Phosphatase 110 Total Protein 6.5 Albumin 3.2 L
[2024-06-26] MEDS: OLANZapine 5 MG TAB PO (20:17)
[2024-06-26] MEDS: Buprenorphine/Naloxone 8 mg/2 mg FILM 1 EACH SL (20:19)
[2024-06-26 20:20] VITALS: BP 121/82; PULSE 58; RESP 18; TEMP 36.5; O2SAT 95
[2024-06-26] MEDS: Budesonide/Formoterol 160/4.5 6 GM 60 PUFF INH IH (20:42)
[2024-06-27] MEDS: LORazepam 1 MG TAB PO/SL ×6 (03:13→22:36)
[2024-06-27] MEDS: diphenhydrAMINE 25 MG CAP 50 MG PO ×2 (03:17→20:09)
[2024-06-27 03:51] VITALS: BP 102/78; PULSE 63; RESP 16; TEMP 36.3; O2SAT 95
[2024-06-27] MEDS: Levothyroxine 75 MCG TAB 150 MCG PO (05:57)
[2024-06-27] MEDS: Acetaminophen 325 MG TAB PO ×2 (06:43→14:01)
[2024-06-27 07:20] LABS: ALT 30 U/L (16-63); AST 18 U/L (15-37); Albumin 3.2 g/dL (3.4-5.0); Alkaline Phosphatase 106 U/L (46-116); Anion Gap 8.3 mmol/L (3-11); BUN 12 mg/dL (7-18); Bilirubin, Total 0.35 mg/dL (0.2-1.0); CO2 28.7 mmol/L (21.0-32.0); CREATININE 0.8 mg/dL (0.70-1.30); Calcium 8.9 mg/dL (8.5-10.1); Chloride 107 mmol/L (98-107); Estimated GFR 102.58 (mL/min/1.73m2); Glucose 137 mg/dL (74-106); Potassium 3.8 mmol/L (3.5-5.1); Sodium 144 mmol/L (136-145); TSH (W/Ref FT4) 3.16 uIU/mL (0.36-3.74); Total Protein 6.8 g/dL (6.4-8.2)
[2024-06-27 07:51] VITALS: BP 109/69; PULSE 53; RESP 12; TEMP 36.1; O2SAT 91
[2024-06-27] MEDS: Budesonide/Formoterol 160/4.5 6 GM 60 PUFF INH IH ×2 (08:05→20:20)
[2024-06-27] MEDS: Thiamine 100 MG TAB PO (08:22)
[2024-06-27] MEDS: Cholecalciferol (Vitamin D3) 1,000 UNIT TAB 5000 UNITS PO (08:22)
[2024-06-27] MEDS: Cyanocobalamin 500 MCG TAB 1000 MCG PO (08:23)
[2024-06-27] MEDS: Multivitamin TAB 1 TAB PO (08:24)
[2024-06-27] MEDS: Gabapentin 800 MG TAB PO ×3 (08:24→20:09)
[2024-06-27] MEDS: Folic Acid 1 MG TAB PO (08:24)
[2024-06-27] MEDS: diazePAM 5 MG TAB 10 MG PO ×2 (08:25→20:09)
[2024-06-27] MEDS: Normal Saline Flush 10 ML SYR IVP ×2 (08:28→20:10)
[2024-06-27] MEDS: Buprenorphine/Naloxone 12 mg/3 mg FILM 1 EACH SL (08:28)
--- NOTE | 2024-06-27 11:33 | PDOC.CMPRO ---
Date of service: 06/27/24 Time of Service: 11:33 Care Management Progress Note Progress Note Text Progress Note Text: Cameron was sleeping when CM attempted to meet with him today. CM spoke to his RN, who stated that he had just scored 14 on CIWA. He is being closely monitored for withdrawal. A PT consult was placed today to support the recommendations made by Ortho, including wearing a sling when he is ambulating. CM will continue to follow. Discharge Potential Discharge Needs: PCP F/U Appt Anticipated Barriers to Discharge: None Identified Patient/Family Education Needs: Review discharge instructions, discuss Ask Me Three Transportation: Private vehicle Plan: Cameron continues to be closely monitored for withdrawal. Once he is medically cleared he will be discharged home; he is interested in inpatient treatment for substance use, which is a self referral. If he does not have a bed once he is ready for discharge, he can wait to go to treatment from home. CM will contact the call or contact centre coach, if he is receptive, for support with this process. He will follow up with his PCP and his discharge plan of care. CM will continue to follow. SDOH(Care Management) Screening Will the Patient Participate in the Screening?: Yes Do you worry about having a steady place to live?: no Problems where you live: no known problems In the past 12 months, have you had to go without electric, gas, oil or water in your home?: no Have you or anyone in your house had to go without enough food to eat?: no Has lack of transportation kept you from medical appointments or from doing things needed for daily living?: no Has anyone in your support network made you feel unsafe for any reason?: no Social Determinants of Health Comments(SDOH Details): worry d/t being in here for income
[2024-06-27 11:38] VITALS: BP 123/87; PULSE 61; RESP 18; TEMP 35.7; O2SAT 98
[2024-06-27 15:20] VITALS: BP 134/86; PULSE 66; RESP 13; TEMP 36.1; O2SAT 96
--- NOTE | 2024-06-27 19:02 | PGE_ITS ---
Date of Service Date of service: 06/27/24 Time of Service: 19:02 Assessment and Plan Assessment and plan (1) Benzodiazepine withdrawal: Status: Acute Assessment and plan: Continue benzodiazepines per CIWA scoring (2) Alcohol withdrawal: Status: Acute Assessment and plan: as above. (3) Bipolar depression: Status: Acute Assessment and plan: [place] is therapeutic, continue his prevoius dosing. Get TSH. Continue gabapentin, which may also mitigate some risk of seizures with benzo withdrawal. (4) Left ulnar fracture: Status: Acute Assessment and plan: x-ray confirms fracture. Non-displaced so likely conservative management, but will request ortho consult to guide management and follow up. Requested PT evaluation for sling. (5) Alcohol abuse: Status: Chronic Assessment and plan: Consider campryl, non-pharmacologic management when he is ready for discharge. (6) Opioid use disorder, moderate, in sustained remission, dependence: Assessment and plan: Stable on suboxone per report, continue outpatient dosing. (7) Allergic rhinitis: Status: Acute Assessment and plan: continue outpatient nasal therapy (8) Hypertension: Assessment and plan: continue metoprolol. (9) DVT prophylaxis: Status: Acute Assessment and plan: Not high risk, SCDs for now Subjective Subjective Interval history since last seen: Clinical course reviewed including notes, orders, labs, vitals, meds, imaging, and cultures. Care is discussed with primary nurse. Patient denies chills fever nausea vomiting diarrhea Patient is tearful begging for more benzodiazepines. Asking us to wean him slowly. He continues to have higher CIWA scores and is receiving medications accordingly. Exam Narrative Exam Narrative: GEN: Alert and oriented x 4, though uncomfortable, a little flushed and tr emulous. Tearful and crying HEENT: Conjunctiva clear, no icterus, MMM LUNGS: CTAB with normal effort CV: RRR with no murmurs, gallops, or rubs. ABD: active bowel sounds, soft, nontender and nondistended. No masses. EXT: no cyanosis, clubbing, or edema MSK: Left elbow tender, mild swelling, he is not able to extend past 20 degrees due to pain. not hot/red NEURO: nl sensation and movement of right hand. tremor as above. PSYCH: Depressed and anxious mood and affect. normal thought process, no hallucinations Objective Last Vital Signs Temp 36.1 C L 06/27/24 15:20 Pulse 66 06/27/24 15:20 Resp 13 06/27/24 15:20 BP 134/86 06/27/24 15:20 Pulse Ox 96 06/27/24 15:20 Laboratory Results - last 24 hr 06/27/24 06/27/24 06:25 06:25 Sodium 144 Potassium 3.8 Chloride 107 Carbon Dioxide 28.7 Anion Gap 8.3 BUN 12 Creatinine 0.8 Est GFR (CKD-EPI 2020) 102.58 Glucose 137 H Calcium 8.9 Total Bilirubin 0.35 AST 18 ALT 30 Alkaline Phosphatase 106 Total Protein 6.8 Albumin 3.2 L TSH Cancelled 3.16 PAWSS Have you Been Recently Intoxicated or Drunk Within the Last 30 days?: Yes Have you Ever Experienced Previous Episodes of Alcohol Withdrawal?: Yes Have you ever Experienced Withdrawal Seizures?: No Have you ever Experienced Delirium Tremens(DT)s?: No Have you ever undergone Alcohol Rehabilitation Treatment (i.e, inpt ot outpatient treatment programs)?: Yes Have you ever Experienced Blackouts?: Yes Have you ever Combined Alcohol with other Downers within the last 90 days?: Yes Have you ever Combined Alcohol with any other Substance of Abuse during the last 90 days?: No Positive Blood Alcohol level on Presentation? [PCS.BAL]: No Evidence of Increased Autonomic Activity (i.e. HR>120, tremor, sweating, agitation, nausea)?: No Result: 4 Time Spent with Patient Time Spent with Patient: 25-34 minutes Time was spent: preparing to see the patient(eg.review tests), obtaining and/or reviewing separately otained hiistory, ordering medications,tests, procedures, referring, communicating with other health anesthesiologist and critical care, indepentently interpreting results, counseling the patient and care coordination
[2024-06-27] MEDS: Buprenorphine/Naloxone 8 mg/2 mg FILM 1 EACH SL (20:09)
[2024-06-27 22:30] VITALS: BP 130/65; PULSE 70; RESP 14; TEMP 36.4; O2SAT 96
[2024-06-28] VITALS (7 sets, daily range): BP systolic 115–134; BP diastolic 73–104; PULSE 58–81; RESP 14–20; TEMP 36–36.8; O2SAT 92–97
[2024-06-28] MEDS: OLANZapine 5 MG TAB PO ×2 (00:22→20:12)
[2024-06-28] MEDS: LORazepam 1 MG TAB PO/SL ×3 (03:53→18:18)
[2024-06-28] MEDS: Levothyroxine 75 MCG TAB 150 MCG PO (06:35)
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
[2024-06-28] MEDS: Budesonide/Formoterol 160/4.5 6 GM 60 PUFF INH IH ×2 (08:27→21:11)
[2024-06-28] MEDS: Buprenorphine/Naloxone 12 mg/3 mg FILM 1 EACH SL (09:09)
[2024-06-28] MEDS: Thiamine 100 MG TAB PO (09:09)
[2024-06-28] MEDS: Cholecalciferol (Vitamin D3) 1,000 UNIT TAB 5000 UNITS PO (09:10)
[2024-06-28] MEDS: Cyanocobalamin 500 MCG TAB 1000 MCG PO (09:11)
[2024-06-28] MEDS: Gabapentin 800 MG TAB PO ×3 (09:11→20:12)
[2024-06-28] MEDS: Normal Saline Flush 10 ML SYR IVP ×2 (09:12→20:13)
[2024-06-28] MEDS: Multivitamin TAB 1 TAB PO (09:12)
[2024-06-28] MEDS: Folic Acid 1 MG TAB PO (09:12)
--- NOTE | 2024-06-28 10:43 | PT.INIE ---
Date of service: 06/28/24 Time of Service: 10:19 PT Notes Visit Reasons: Benzodiazepine/alcohol withdrawal Inpatient Physical Therapy Evaluation I certify the need for these services as being medically necessary and skilled as furnished under this plan of treatment while under my care. Please sign and return within 14 days if you agree with the plan of care listed below.? Thank you for this referral! ? Referring Physician? Date Referring Doctor:? Omega Guevara PT Orders: PT CONSULT for assistive device Precautions: Left elbow fracture, currently on CIWA monitoring Patient Profile/Admitting Diagnosis:? The patient is a 58 yo male adm on 06/25/24 with bipolar depression, opioid use disorder, alcohol use disorder, and chronic escalating benzodiazepine use presented to the emergency room after taking his last benzodiazepines about midnight the previous night. He states he took up to 4mg of clonezepam per day including yesterday, last night also took 20mg diazepam at the same time. He is also drinking alcohol. Left elbow pain and xray/ortho consult revealed a nondisplaced fracture through the coronoid process of the proximal ulna with a joint effusion. Ortho consult: elevating/resting elbow on pillows while in bed. Sling when out of bed and ambulatory. Encouraged gentle range of motion about the elbow. Light use of the left upper extremity for ADLs okay. Outpatient follow-up with orthopedic surgery 1-2 weeks. Past Medical History: All Active Problems (Updated 06/25/24 @ 17:08 by Cameron Garza) DVT prophylaxis (Acute) Elbow pain, left (Acute) Bipolar depression (Acute) Benzodiazepine withdrawal (Acute) Alcohol withdrawal (Acute) Alcohol abuse (Chronic) Nail dystrophy (Acute) Onychomycosis (Acute) Neuropathy (Acute) Toenail fungus (Acute) Right flank pain (Acute) Restless legs (Acute) Recurrent major depressive disorder (Acute) Psychophysiologic insomnia (Acute) Allergic rhinitis (Acute) Alcoholism in remission (Acute) Medical History (Updated 06/25/24 @ 17:08 by Cameron Garza) Hypertension Opioid use disorder, moderate, in sustained remission, dependence Amputation finger Suicide attempt Former smoker. quit 2018 Surgical History Hx of circumcision Medications: See chart Social History/Home Situation: Lives alone in [place]. Full flight to enter. Normally drives and works. Has family/friends down the street who can check on him/assist Subjective: Everything aches...I can't explain it...you would only understand if you were going through withdrawl. Objective: Issued sling for L UE and instructed to use while up and walking. Mental Status: Patient is alert and oriented. Pain: see above. Reports he is using ice on his elbow as needed Vital Signs: 722 am 115/79 58 bpm 93% on RA ROM/Strength: UE and LE grossly intact. Able to move against gravity. Left UE with minimal movement/use secondary to elbow fx. Sensation: No c/o unumbness and tingling Soft tissue/edema: Edema L elbow Bed Mobility: Supine to sit min assist from PT per request but up ambulating in room early without assist for supine to sit. Sit to supine independentl Transfers: Sit to/stand I in room. mildly unsteady Gait: Ambulated 100 feet with cga. Mildly unsteady with wide SAYRA. L Ue in sling. Balance: Constant movement observed secondary to mild unsteadiness [facility] AM-PAC 6 clicks Basic Mobility Inpatient Short Form: Raw Score:?23? CMS Score:11.2% Informed Consent/Education:? Patient instructed in purpose of PT consult and plan of care and is agreeable Assessment:? Patient is a? 58 year old male adm on 06/25/24 with bipolar depression, opioid use disorder, alcohol use disorder, and chronic escalating benzodiazepine with fx of left proxmal ulna.? Patient presents with left elbow and global pain, decreased strength, decreased functional mobility, decreased balance and difficulty with ambulation. The patient would benefit from skilled inpatient services to improve these impairments to maximize function and safety if they do not resolve on their own as he goes through the CIWA protocol. Patient is assessed as:? Low 36437??complexity based on the following: History: Lives alone, L elbow fx Examination: see above Presentation: Stable and uncomplicated? Decision Making:? Low (0 history, 1-2 exam, stable/predictable, easy 20) Physical Therapy Goals: 2 days. Independent with home exercise program and functional mobility in his hospital room. Supervision with mobility in the hallway without loss of balance. Plan of Care/Treatment Plan: 1x/day, 7 days/week x 2 days. Plan of care has been reviewed with the WOOD TILE INSTALLATION HELPER providing the service under Physical Therapy direction. Initiate Physical Therapy intervention for strengthening, bed mobility, transfers, gait, stairs, balance training, use of assistive device. DISCHARGE RECOMMENDATIONS: Informed consent Prior to the start and throughout the course of the examination and treatment, patient was made aware of the specifics and purpose of the physical assessment and treatment procedures. Appropriate draping procedures were utilized to protect modesty where applicable. Billing Charges: Treatment Units Time Duration Manual Therapy(53631) Hands-on techniques to modulate pain increase joint range of motion reduce or eliminate soft tissue swelling, inflammation, or restriction facilitate relaxation and improve contractile and non-contractile tissue extensibility ? ? Therapeutic Procedures (47764) Instruction in therapeutic exercises to develop strength and endurance, range of motion and flexibility. HEP instruction and review: Provided skilled instruction in proper exercise performance: Provided skilled manual cues to facilitate proper muscle recruitment and/or movement pattern Neurological Re-Education(04321) To improve balance, coordination, kinesthetic and proprioceptive sensations. ? ? Ultrasound(83065) To promote healing. ? ? Gait Training(85700) ? ? Therapeutic Activity(41485) Instruction in dynamic activities with one on one patient contact by the provider to improve functional performance as follows: ?1 ?10 Self Care Training(04461) ? ? E-Stim (Attended)(04481) ? ? Low IE(83929) 1 49 Mod IE(34270) ? ? High IE(72093) ? ? Time Coded Treatment Time ? 10 Total Treatment Time ? 59
[2024-06-28] MEDS: diazePAM 5 MG TAB 10 MG PO ×2 (11:09→20:11)
[2024-06-28] MEDS: Acetaminophen 325 MG TAB PO (11:33)
--- NOTE | 2024-06-28 14:37 | PGE_ITS ---
Date of Service Date of service: 06/28/24 Time of Service: 14:37 Assessment and Plan Assessment and plan (1) Benzodiazepine withdrawal: Status: Acute Assessment and plan: Continue benzodiazepines per CIWA scoring (2) Alcohol withdrawal: Status: Acute Assessment and plan: as above. (3) Bipolar depression: Status: Acute Assessment and plan: [place] is therapeutic, continue his prevoius dosing. TSH 3.16. Continue gabapentin, which may also mitigate some risk of seizures with benzo withdrawal. (4) Left ulnar fracture: Status: Acute Assessment and plan: x-ray confirms fracture. Non-displaced so likely conservative management, but will request ortho consult to guide management and follow up. Requested PT evaluation for sling. (5) Alcohol abuse: Status: Chronic Assessment and plan: Consider campryl, non-pharmacologic management when he is ready for discharge. (6) Opioid use disorder, moderate, in sustained remission, dependence: Assessment and plan: Stable on suboxone per report, continue outpatient dosing. (7) Allergic rhinitis: Status: Acute Assessment and plan: continue outpatient nasal therapy (8) Hypertension: Assessment and plan: continue metoprolol. (9) DVT prophylaxis: Status: Acute Assessment and plan: Not high risk, SCDs for now Subjective Subjective Interval history since last seen: Clinical course reviewed including notes, orders, labs, vitals, meds, imaging, and cultures. Care is discussed with primary nurse. Patient denies chills fever nausea vomiting diarrhea Patient is tearful begging for more benzodiazepines. Asking us to wean him slowly. He continues to have higher CIWA scores and is receiving medications accordingly. Recieved diazepam today Exam Narrative Exam Narrative: GEN: Sleeping deeply on his right side, appears comfortable HEENT: Conjunctiva clear, no icterus, MMM LUNGS: CTAB with normal effort CV: RRR with no murmurs, gallops, or rubs. ABD: active bowel sounds, soft, nontender and nondistended. No masses. EXT: no cyanosis, clubbing, or edema MSK: Left elbow tender, mild swelling, he is not able to extend past 20 degrees due to pain. not hot/red NEURO: nl sensation and movement of right hand. tremor as above. PSYCH: Depressed and anxious mood and affect. normal thought process, no hallucinations Objective Last Vital Signs Temp 36.8 C 06/28/24 11:18 Pulse 65 06/28/24 11:18 Resp 20 06/28/24 11:18 BP 116/73 06/28/24 11:18 Pulse Ox 97 06/28/24 11:18 PAWSS Have you Been Recently Intoxicated or Drunk Within the Last 30 days?: Yes Have you Ever Experienced Previous Episodes of Alcohol Withdrawal?: Yes Have you ever Experienced Withdrawal Seizures?: No Have you ever Experienced Delirium Tremens(DT)s?: No Have you ever undergone Alcohol Rehabilitation Treatment (i.e, inpt ot outpatient treatment programs)?: Yes Have you ever Experienced Blackouts?: Yes Have you ever Combined Alcohol with other Downers within the last 90 days?: Yes Have you ever Combined Alcohol with any other Substance of Abuse during the last 90 days?: No Positive Blood Alcohol level on Presentation? [PCS.BAL]: No Evidence of Increased Autonomic Activity (i.e. HR>120, tremor, sweating, agitation, nausea)?: No Result: 4 Time Spent with Patient Time Spent with Patient: 25-34 minutes Time was spent: preparing to see the patient(eg.review tests), obtaining and/or reviewing separately otained hiistory, ordering medications,tests, procedures, referring, communicating with other health critical care transport nurse, indepentently interpreting results, counseling the patient and care coordination
[2024-06-28] MEDS: Buprenorphine/Naloxone 8 mg/2 mg FILM 1 EACH SL (20:11)
[2024-06-28] MEDS: diphenhydrAMINE 25 MG CAP 50 MG PO (20:12)
[2024-06-29] MEDS: LORazepam 1 MG TAB PO/SL ×4 (00:12→19:16)
[2024-06-29] MEDS: Levothyroxine 75 MCG TAB 150 MCG PO (06:00)
[2024-06-29] MEDS: Budesonide/Formoterol 160/4.5 6 GM 60 PUFF INH IH ×2 (08:01→19:57)
[2024-06-29] MEDS: Cholecalciferol (Vitamin D3) 1,000 UNIT TAB 5000 UNITS PO (08:13)
[2024-06-29] MEDS: Buprenorphine/Naloxone 12 mg/3 mg FILM 1 EACH SL (08:13)
[2024-06-29] MEDS: diazePAM 5 MG TAB 10 MG PO ×2 (08:13→19:15)
[2024-06-29] MEDS: Gabapentin 800 MG TAB PO ×3 (08:13→19:16)
[2024-06-29] MEDS: Metoprolol CR 50 MG TABCR PO (08:14)
[2024-06-29] MEDS: Cyanocobalamin 500 MCG TAB 1000 MCG PO (08:14)
[2024-06-29] MEDS: Multivitamin TAB 1 TAB PO (08:14)
[2024-06-29] MEDS: Thiamine 100 MG TAB PO (08:14)
[2024-06-29] MEDS: Folic Acid 1 MG TAB PO (08:14)
[2024-06-29] MEDS: Normal Saline Flush 10 ML SYR IVP ×2 (08:15→19:17)
[2024-06-29 08:36] VITALS: BP 145/99; PULSE 70; RESP 20; TEMP 36.2; O2SAT 95
--- NOTE | 2024-06-29 11:04 | PT.INTREAT ---
PT Notes Visit Reasons: Benzodiazepine/alcohol withdrawal Inpatient Physical Therapy Treatment Note [facility] Date: 06/29/24 PRECAUTIONS: Sling for Lisa CUETO SUBJECTIVE: Pt reports that he is not feeling well today. OBJECTIVE: ? Therapeutic Activities (12734c[1]): Direct one-on-one instruction in dynamic activities to improve functional performance. ? BED MOBILITY/TRANSFERS? Supine-sit: SBA ? Sit-supine: SBA ? Sit-stand: SBA? Stand-sit: SBA ? Provided skilled cues and instruction on performance and technique throughout. Gait Training (96045w[]): Direct one-on-one instruction and skilled instruction in: GAIT? Assistive Device: No device ? Weight bearing: Full Assist: SBA ? Distance:? 300ft ? Therapeutic Exercises (93899n[]): Direct one-on-one instruction in therapeutic exercises to develop strength, endurance, range of motion and flexibility. ? Exercises ? R UE: rowing x 10 horz abd x 10 shoulder flex x10 shoulder circles x 10 SLR x 10 hip abd x 10 heel slides x 10 ASSESSMENT:? Pt required some motivating to participate in PT today. PLAN: Cont as per PT POC. TREATMENT CODE/TIME: 10:50-11:05 (15) TA DISCHARGE RECOMMENDATION: []
[2024-06-29 11:48] VITALS: BP 126/83; PULSE 58; RESP 20; TEMP 36.6; O2SAT 93
--- NOTE | 2024-06-29 14:46 | PGE_ITS ---
Date of Service Date of service: 06/29/24 Time of Service: 14:46 Assessment and Plan Assessment and plan (1) Benzodiazepine withdrawal: Status: Acute Assessment and plan: Continue benzodiazepines per CIWA scoring CIWA changed to q 4h and PRN (2) Alcohol withdrawal: Status: Acute Assessment and plan: as above. (3) Bipolar depression: Status: Acute Assessment and plan: [place] is therapeutic, continue his prevoius dosing. TSH 3.16. Continue gabapentin, which may also mitigate some risk of seizures with benzo withdrawal. (4) Left ulnar fracture: Status: Acute Assessment and plan: x-ray confirms fracture. Non-displaced so likely conservative management, but will request ortho consult to guide management and follow up. Requested PT evaluation for sling. (5) Alcohol abuse: Status: Chronic Assessment and plan: Consider campryl, non-pharmacologic management when he is ready for discharge. (6) Opioid use disorder, moderate, in sustained remission, dependence: Assessment and plan: Stable on suboxone per report, continue outpatient dosing. (7) Allergic rhinitis: Status: Acute Assessment and plan: continue outpatient nasal therapy (8) Hypertension: Assessment and plan: continue metoprolol. (9) DVT prophylaxis: Status: Acute Assessment and plan: Not high risk, SCDs for now Subjective Subjective Interval history since last seen: Clinical course reviewed including notes, orders, labs, vitals, meds, imaging, and cultures. Care is discussed with primary nurse. Patient denies chills fever nausea vomiting diarrhea Patient is tearful begging for more benzodiazepines. Asking us to wean him slowly. He continues to have higher CIWA scores and is receiving medications accordingly. Patient anxiety changed dramatically 48 hours ago. CIWA scores are low. Discussed with primary nurse re changing CIWA interval Exam Narrative Exam Narrative: GEN: Sleeping deeply on his right side, appears comfortable HEENT: Conjunctiva clear, no icterus, MMM LUNGS: CTAB with normal effort CV: RRR with no murmurs, gallops, or rubs. ABD: active bowel sounds, soft, nontender and nondistended. No masses. EXT: no cyanosis, clubbing, or edema MSK: Left elbow tender, mild swelling, he is not able to extend past 20 degrees due to pain. not hot/red NEURO: nl sensation and movement of right hand. tremor as above. PSYCH: Depressed and anxious mood and affect. normal thought process, no hallucinations Objective Last Vital Signs Temp 36.6 C 06/29/24 11:48 Pulse 58 L 06/29/24 11:48 Resp 20 06/29/24 11:48 BP 126/83 06/29/24 11:48 Pulse Ox 93 06/29/24 11:48 PAWSS Have you Been Recently Intoxicated or Drunk Within the Last 30 days?: Yes Have you Ever Experienced Previous Episodes of Alcohol Withdrawal?: Yes Have you ever Experienced Withdrawal Seizures?: No Have you ever Experienced Delirium Tremens(DT)s?: No Have you ever undergone Alcohol Rehabilitation Treatment (i.e, inpt ot outpatient treatment programs)?: Yes Have you ever Experienced Blackouts?: Yes Have you ever Combined Alcohol with other Downers within the last 90 days?: Yes Have you ever Combined Alcohol with any other Substance of Abuse during the last 90 days?: No Positive Blood Alcohol level on Presentation? [PCS.BAL]: No Evidence of Increased Autonomic Activity (i.e. HR>120, tremor, sweating, agitation, nausea)?: No Result: 4 Time Spent with Patient Time Spent with Patient: 25-34 minutes Time was spent: preparing to see the patient(eg.review tests), obtaining and/or reviewing separately otained hiistory, ordering medications,tests, procedures, referring, communicating with other health laboratory animal caretaker, indepentently interpreting results, counseling the patient and care coordination
[2024-06-29 15:53] VITALS: BP 125/78; PULSE 57; RESP 20; TEMP 36.4; O2SAT 93
[2024-06-29] MEDS: Buprenorphine/Naloxone 8 mg/2 mg FILM 1 EACH SL (19:16)
[2024-06-29] MEDS: diphenhydrAMINE 25 MG CAP 50 MG PO (19:16)
[2024-06-30] MEDS: LORazepam 1 MG TAB PO/SL ×5 (01:30→15:13)
[2024-06-30] MEDS: Levothyroxine 75 MCG TAB 150 MCG PO (05:43)
[2024-06-30 07:34] VITALS: BP 132/88; PULSE 54; RESP 18; TEMP 36.3; O2SAT 96
[2024-06-30] MEDS: diazePAM 5 MG TAB 10 MG PO ×2 (07:48→20:30)
[2024-06-30] MEDS: Cholecalciferol (Vitamin D3) 1,000 UNIT TAB 5000 UNITS PO (07:48)
[2024-06-30] MEDS: Buprenorphine/Naloxone 12 mg/3 mg FILM 1 EACH SL (07:48)
[2024-06-30] MEDS: Thiamine 100 MG TAB PO (07:49)
[2024-06-30] MEDS: Gabapentin 800 MG TAB PO ×2 (07:49→20:30)
[2024-06-30] MEDS: Multivitamin TAB 1 TAB PO (07:49)
[2024-06-30] MEDS: Folic Acid 1 MG TAB PO (07:49)
[2024-06-30] MEDS: Metoprolol CR 50 MG TABCR PO (07:49)
[2024-06-30] MEDS: Cyanocobalamin 500 MCG TAB 1000 MCG PO (07:49)
[2024-06-30] MEDS: Normal Saline Flush 10 ML SYR IVP ×2 (07:50→20:31)
[2024-06-30] MEDS: Budesonide/Formoterol 160/4.5 6 GM 60 PUFF INH IH ×2 (07:51→20:27)
[2024-06-30] MEDS: Ketoconazole 2% CREAM 15 GM TUBE TP (09:36)
--- NOTE | 2024-06-30 10:36 | PT.INTREAT ---
PT Notes Visit Reasons: Benzodiazepine/alcohol withdrawal Inpatient Physical Therapy Treatment Note [facility] Date: 06/30/24 PRECAUTIONS: Sling for L UE for comfort SUBJECTIVE: Pt reports being anxious today . He is concerned about his job. (Nurse is aware ) OBJECTIVE:Pt pacing in room when approached for PT session. ? Therapeutic Activities (15931i[1]): Direct one-on-one instruction in dynamic activities to improve functional performance. ? BED MOBILITY/TRANSFERS? Supine-sit: Independent ? Sit-supine: Independent? Sit-stand: Independent ? Stand-sit:Independent ? Provided skilled cues and instruction on performance and technique throughout. Gait Training (75695w[]): Direct one-on-one instruction and skilled instruction in: GAIT? Assistive Device: No device ? Weight bearing: Full Assist: SBA ? Distance:? 300ft ? Therapeutic Exercises (37425f[]): Direct one-on-one instruction in therapeutic exercises to develop strength, endurance, range of motion and flexibility. ? Exercises ? R UE: rowing x 10 horz abd x 10 shoulder flex x10 shoulder circles x 10 SLR x 10 hip abd x 10 heel slides x 10 ASSESSMENT:? Pt required some motivating to participate in PT today. PLAN: Cont as per PT POC. TREATMENT CODE/TIME: DISCHARGE RECOMMENDATION: []
--- NOTE | 2024-06-30 11:45 | PT.INNT ---
PT Notes Visit Reasons: Benzodiazepine/alcohol withdrawal Pt approached for therapy session x 2 this morning. On first attempt, he was pacing his room , very anxious. He stated he was upset about his job. and needed to get something to help him calm down. His Nurse brought him ativan and requested this PT wait to treat him. Pt approached a 2nd time at 11am he then reported he was too tired and needed to get a little sleep but was agreeable to participating in PT after lunch.
[2024-06-30 12:40] VITALS: BP 185/114; PULSE 81; RESP 36; TEMP 36.4; O2SAT 96
--- NOTE | 2024-06-30 14:07 | PT.INTREAT ---
PT Notes Visit Reasons: Benzodiazepine/alcohol withdrawal Inpatient Physical Therapy Treatment Note [facility] Date: 06/30/24 PRECAUTIONS:Standard SUBJECTIVE: Pt reports that he is under stress today about placement with rehab and getting his SS requirements taken care of. Pt is fearful that he is going to lose his job. OBJECTIVE: Therapeutic Activities (61602o[1]): Direct one-on-one instruction in dynamic activities to improve functional performance. ? BED MOBILITY/TRANSFERS? Supine-sit: SBA? Sit-stand: SBA? Stand-sit: SBA ? Provided skilled cues and instruction on performance and technique throughout. Gait Training (52448s[]): Direct one-on-one instruction and skilled instruction in: GAIT? Assistive Device: No device? Weight bearing: Full Assist: SBA ? Distance:? Approx 250ft ? Therapeutic Exercises (96325v[]): Direct one-on-one instruction in therapeutic exercises to develop strength, endurance, range of motion and flexibility. ? Exercises ? Refused. ASSESSMENT:? Pt was very stressed and emotional today and that was effecting his ability to participate in PT. PLAN: Cont as per PT POC. TREATMENT CODE/TIME: 1:25-1:35 (10) TA DISCHARGE RECOMMENDATION: []
--- NOTE | 2024-06-30 15:41 | PDOC.CMPRO ---
Date of service: 06/30/24 Time of Service: 15:41 Care Management Progress Note Progress Note Text Progress Note Text: Cameron was sleeping each time CM attempted to meet with him today. CM reviewed progress with nursing and his outpatient care team at [facility]. Cameron was evaluated by [facility] clinician who agrees that inpatient psych/substance abuse treatment is appropriate. [facility] will meet with Cameron daily per protocol and will send referrals. Per [facility], patient is not acutely suicidal but would benefit from a safety plan if he chooses to leave AMA since he was informed by his outpatient providers at [facility] that he will not be prescribed outpatient medications which is quite distressing to him. Cameron is being medically managed for his withdrawal symptoms and scoring on CIWA. The [facility] clinician advised CM that Cameron may be more appropriate for Zone B, when medically. CM will talk with [facility] about discharging to the carebed, once medically ready. CM will follow. Discharge Potential Discharge Needs: Consult ([facility]) and PCP F/U Appt Anticipated Barriers to Discharge: Medical Status Patient/Family Education Needs: Review discharge instructions, discuss Ask Me Three Plan: Cameron continues to be closely monitored for withdrawal. [facility] recommends inpatient psych/substance abuse treatment once medically stable and will send referrals. Anticipate, Cameron will remain at [facility] until inpatient treatment at an accepting facility is secured. Discharge to the Carebed would be ideal when pt is medically ready for discharge. CM will review with [facility]. Transportation will be dependent on dispo. CM will follow. SDOH(Care Management) Screening Will the Patient Participate in the Screening?: Yes Do you worry about having a steady place to live?: no Problems where you live: no known problems In the past 12 months, have you had to go without electric, gas, oil or water in your home?: no Have you or anyone in your house had to go without enough food to eat?: no Has lack of transportation kept you from medical appointments or from doing things needed for daily living?: no Has anyone in your support network made you feel unsafe for any reason?: no Social Determinants of Health Comments(SDOH Details): worry d/t being in here for income
--- NOTE | 2024-06-30 17:26 | W.PM.PROGNOT ---
Date of Service Date of service: 06/30/24 Time of Service: 17:26 Assessment and Plan Assessment and plan (1) Benzodiazepine withdrawal: Status: Acute Assessment and plan: Continue benzodiazepines per CIWA scoring CIWA continues q 4h and PRN (2) Hypertension: Assessment and plan: continue metoprolol. And Catapres. Will place a patch and give him oral dose x 1. This should help with his hypertension and his anxiety and may assist in the benzodiazepine withdrawal (3) Anxiety: Status: Chronic Assessment and plan: Patient is extremely anxious over the possible loss of his job. He is also anxious regarding conversation he had with his therapist today He is highly motivated to seek drug rehab which was the subject of his conversation with his therapist today. Catapres is being added to assist with this anxiety as well as the patient's hypertension likely secondary to his extreme anxiety. (4) Alcohol withdrawal: Status: Acute Assessment and plan: as above. (5) Bipolar depression: Status: Acute Assessment and plan: [place] is therapeutic, continue his prevoius dosing. TSH 3.16. Continue gabapentin, which may also mitigate some risk of seizures with benzo withdrawal. (6) Left ulnar fracture: Status: Acute Assessment and plan: x-ray confirms fracture. Non-displaced so likely conservative management, but will request ortho consult to guide management and follow up. Requested PT evaluation for sling. (7) Alcohol abuse: Status: Chronic Assessment and plan: Consider campryl, non-pharmacologic management when he is ready for discharge. (8) Opioid use disorder, moderate, in sustained remission, dependence: Assessment and plan: Stable on suboxone per report, continue outpatient dosing. (9) Allergic rhinitis: Status: Acute Assessment and plan: continue outpatient nasal therapy (10) DVT prophylaxis: Status: Acute Assessment and plan: Not high risk, SCDs for now Subjective Subjective Interval history since last seen: Clinical course reviewed including notes, orders, labs, vitals, meds, imaging, and cultures. Care is discussed with primary nurse. Patient troubled following discussion with his therapist. He is troubled about losing his job. He is experiencing higher CIWA, getting more benzodiazepines. Patient denies chills fever nausea vomiting diarrhea BP is markedly elevated. Patient very anxious. On a beta onra. Discussed with primary nurse re changing CIWA interval Objective Last Vital Signs Temp 36.4 C L 06/30/24 12:40 Pulse 81 06/30/24 12:40 Resp 36 H 06/30/24 12:40 BP 185/114 H 06/30/24 12:40 Pulse Ox 96 06/30/24 12:40 PAWSS Have you Been Recently Intoxicated or Drunk Within the Last 30 days?: Yes Have you Ever Experienced Previous Episodes of Alcohol Withdrawal?: Yes Have you ever Experienced Withdrawal Seizures?: No Have you ever Experienced Delirium Tremens(DT)s?: No Have you ever undergone Alcohol Rehabilitation Treatment (i.e, inpt ot outpatient treatment programs)?: Yes Have you ever Experienced Blackouts?: Yes Have you ever Combined Alcohol with other Downers within the last 90 days?: Yes Have you ever Combined Alcohol with any other Substance of Abuse during the last 90 days?: No Positive Blood Alcohol level on Presentation? [PCS.BAL]: No Evidence of Increased Autonomic Activity (i.e. HR>120, tremor, sweating, agitation, nausea)?: No Result: 4 Time Spent with Patient Time Spent with Patient: 35-49 minutes Time was spent: preparing to see the patient(eg.review tests), obtaining and/or reviewing separately otained hiistory, ordering medications,tests, procedures, referring, communicating with other health career development director, indepentently interpreting results, counseling the patient and care coordination
[2024-06-30] MEDS: cloNIDine 0.1 MG PATCH TD (17:35)
[2024-06-30] MEDS: cloNIDine 0.1 MG TAB PO (17:42)
[2024-06-30 19:35] VITALS: BP 133/100; PULSE 68; RESP 17; TEMP 36; O2SAT 97
[2024-06-30] MEDS: Buprenorphine/Naloxone 8 mg/2 mg FILM 1 EACH SL (20:29)
[2024-06-30] MEDS: diphenhydrAMINE 25 MG CAP 50 MG PO (20:29)
[2024-07-01 00:36] VITALS: BP 116/75; PULSE 64; RESP 19; TEMP 36.6; O2SAT 97
[2024-07-01] MEDS: Acetaminophen 325 MG TAB PO (00:42)
[2024-07-01] MEDS: LORazepam 1 MG TAB PO/SL ×2 (00:42→10:11)
[2024-07-01] MEDS: Levothyroxine 75 MCG TAB 150 MCG PO (06:46)
[2024-07-01 08:45] VITALS: BP 152/100; PULSE 64; RESP 20; TEMP 36.1; O2SAT 98
[2024-07-01] MEDS: diazePAM 5 MG TAB 10 MG PO ×3 (08:54→20:25)
[2024-07-01] MEDS: Buprenorphine/Naloxone 12 mg/3 mg FILM 1 EACH SL (08:54)
[2024-07-01] MEDS: Cholecalciferol (Vitamin D3) 1,000 UNIT TAB 5000 UNITS PO (08:54)
[2024-07-01] MEDS: Gabapentin 800 MG TAB PO ×3 (08:54→20:26)
[2024-07-01] MEDS: Metoprolol CR 50 MG TABCR PO (08:55)
[2024-07-01] MEDS: Thiamine 100 MG TAB PO (08:55)
[2024-07-01] MEDS: Cyanocobalamin 500 MCG TAB 1000 MCG PO (08:55)
[2024-07-01] MEDS: Folic Acid 1 MG TAB PO (08:55)
[2024-07-01] MEDS: Multivitamin TAB 1 TAB PO (08:55)
--- NOTE | 2024-07-01 08:58 | CMPROGNOTE_ITS ---
Date of service: 07/01/24 Time of Service: 08:58 Care Management Progress Note Progress Note Text Progress Note Text: Cameron is being monitored and treated for withdrawal symptoms. Cameron wants to discharge home and follow up with his healthcare team when he is medically ready. He is eager to discharge home so he can return to work. Community resources have been provided to patient and he is also well connected in the community. Cameron verbalizes understanding of the self referral process if he changes his mind and wants to pursue inpatient treatment. Cameron is established with [facility], [facility] and [facility]. Danika and America Ponce NP at [facility] have been in close contact with CM and the Hospitalist prior to discharge. America Forrest NP advises that she will be providing medication management in the community and is coordinating daily med drops through [facility]. Discharge Potential Discharge Needs: PCP F/U Appt Anticipated Barriers to Discharge: Medical Status Patient/Family Education Needs: Review discharge instructions, discuss Ask Me Three Transportation: Private vehicle Plan: Anticipate, Cameron will discharge home when medically ready with a plan to follow up with his community providers and supports ([facility], [facility] screened patient yesterday, and cleared from a mental health standpoint. CM will follow. SDOH(Care Management) Screening Will the Patient Participate in the Screening?: Yes Do you worry about having a steady place to live?: no Problems where you live: no known problems In the past 12 months, have you had to go without electric, gas, oil or water in your home?: no Have you or anyone in your house had to go without enough food to eat?: no Has lack of transportation kept you from medical appointments or from doing things needed for daily living?: no Has anyone in your support network made you feel unsafe for any reason?: no Social Determinants of Health Comments(SDOH Details): worry d/t being in here for income
[2024-07-01 09:18] VITALS: BP 147/99; PULSE 67; TEMP 36.1
[2024-07-01 10:51] VITALS: BP 127/88; PULSE 58; RESP 16; TEMP 36.5; O2SAT 95
--- NOTE | 2024-07-01 13:39 | NUR.NOTE ---
Nursing Note: Patient walking with dietary in the hallways. Patient claims foot was slipping to the left and he grabbed railing and lowered himself to a knee. Patient ambulates with no issues and had yellow socks on during event. No issues, pain, or concerns from patient. Patient was anxious and agitated prior to the event. Patient educated on not wandering halls anymore and safely ambulating to prevent a fall from occuring.
--- NOTE | 2024-07-01 14:18 | PT.INTREAT ---
PT Notes Visit Reasons: Benzodiazepine/alcohol withdrawal Inpatient Physical Therapy Treatment Note [facility] Date: 07/01/24 PRECAUTIONS:Standard SUBJECTIVE: Pt again reports that he is under stress today about placement with rehab and getting his SS requirements taken care of. Pt is fearful that he is going to lose his job. OBJECTIVE: Therapeutic Activities (35233): Direct one-on-one instruction in dynamic activities to improve functional performance. ? BED MOBILITY/TRANSFERS?Independent with bed mobility, transfers various surfaces including chair, toilet and bed Provided skilled cues and instruction on performance and technique throughout. Gait Training (92377l0): Direct one-on-one instruction and skilled instruction in: GAIT? Assistive Device: No device? Weight bearing: Full Assist: independent? Distance:?500 feet Stairs : SBA two 6 steps with 1 rail x5 trials to simulate a flight of stairs.? Therapeutic Exercises (96076r5): Direct one-on-one instruction in therapeutic exercises to develop strength, endurance, range of motion and flexibility. ? Exercises ?AROM elbow extension, supination /pronation table top, ulnar and radial deviation x 10 reps ASSESSMENT:? Pt initially pacing then was able to calm down and participate in PT session. Pt is independent with functional mobility except stairs. Pt sessions to focus on left elbow ROM and pain management PLAN: Cont skilled PT 1x/day for pain management AROM. TREATMENT CODE/TIME: 70052 x 10 mins, 37115 x 14 mins / [id number] DISCHARGE RECOMMENDATION: Outpatient PT for left elbow strengthening as indicated.
[2024-07-01 15:59] VITALS: BP 104/78; PULSE 57; RESP 14; TEMP 36; O2SAT 94
--- NOTE | 2024-07-01 18:57 | PGE_ITS ---
Date of Service Date of service: 07/01/24 Time of Service: 18:58 Assessment and Plan Assessment and plan (1) Benzodiazepine withdrawal: Status: Acute Assessment and plan: Continue benzodiazepines per CIWA scoring CIWA continues q 4h and PRN (2) Hypertension: Assessment and plan: continue metoprolol. (3) Anxiety: Status: Chronic Assessment and plan: Patient is extremely anxious over the possible loss of his job. He is also anxious regarding conversation he had with his therapist today He is highly motivated to seek drug rehab which was the subject of his conversation with his therapist today. Discussed with America ELAM, his OP provider. (4) Alcohol withdrawal: Status: Acute Assessment and plan: as above. (5) Bipolar depression: Status: Acute Assessment and plan: [place] is therapeutic, continue his prevoius dosing. TSH 3.16. Continue gabapentin, which may also mitigate some risk of seizures with benzo withdrawal. (6) Left ulnar fracture: Status: Acute Assessment and plan: x-ray confirms fracture. Non-displaced so likely conservative management, but will request ortho consult to guide management and follow up. Requested PT evaluation for sling. (7) Alcohol abuse: Status: Chronic Assessment and plan: Consider campryl, non-pharmacologic management when he is ready for discharge. (8) Opioid use disorder, moderate, in sustained remission, dependence: Assessment and plan: Stable on suboxone per report, continue outpatient dosing. (9) Allergic rhinitis: Status: Acute Assessment and plan: continue outpatient nasal therapy (10) DVT prophylaxis: Status: Acute Assessment and plan: Not high risk, SCDs for now Subjective Subjective Interval history since last seen: Clinical course reviewed including notes, orders, labs, vitals, meds, imaging, and cultures. Care is discussed with primary nurse. Patient anxious about many things. He is experiencing higher CIWA, getting more benzodiazepines. Patient denies chills fever nausea vomiting diarrhea Patient asked to have catapress patch removed. Discussed with primary nurse re changing CIWA interval Discussed at length with America villareal APN care provider. Exam Narrative Exam Narrative: GEN: Awake and alert, complains of not knowing what to do. HEENT: Conjunctiva clear, no icterus, MMM LUNGS: CTAB with normal effort CV: RRR with no murmurs, gallops, or rubs. ABD: active bowel sounds, soft, nontender and nondistended. No masses. EXT: no cyanosis, clubbing, or edema MSK: Left elbow tender, mild swelling, he is not able to extend past 20 degrees due to pain. not hot/red NEURO: nl sensation and movement of right hand. tremor as above. PSYCH: Depressed and anxious mood and affect. normal thought process, no hallucinations Objective Last Vital Signs Temp 36 C L 07/01/24 15:59 Pulse 57 L 07/01/24 15:59 Resp 14 07/01/24 15:59 BP 104/78 07/01/24 15:59 Pulse Ox 94 07/01/24 15:59 PAWSS Have you Been Recently Intoxicated or Drunk Within the Last 30 days?: Yes Have you Ever Experienced Previous Episodes of Alcohol Withdrawal?: Yes Have you ever Experienced Withdrawal Seizures?: No Have you ever Experienced Delirium Tremens(DT)s?: No Have you ever undergone Alcohol Rehabilitation Treatment (i.e, inpt ot outpatient treatment programs)?: Yes Have you ever Experienced Blackouts?: Yes Have you ever Combined Alcohol with other Downers within the last 90 days?: Yes Have you ever Combined Alcohol with any other Substance of Abuse during the last 90 days?: No Positive Blood Alcohol level on Presentation? [PCS.BAL]: No Evidence of Increased Autonomic Activity (i.e. HR>120, tremor, sweating, agitation, nausea)?: No Result: 4 Time Spent with Patient Time Spent with Patient: 35-49 minutes Time was spent: preparing to see the patient(eg.review tests), obtaining and/or reviewing separately otained hiistory, ordering medications,tests, procedures, referring, communicating with other health health care social worker, indepentently interpreting results, counseling the patient and care coordination
[2024-07-01] MEDS: diphenhydrAMINE 25 MG CAP 50 MG PO (20:25)
[2024-07-01] MEDS: Buprenorphine/Naloxone 8 mg/2 mg FILM 1 EACH SL (20:26)
[2024-07-01] MEDS: Normal Saline Flush 10 ML SYR IVP (20:26)
[2024-07-01] MEDS: Budesonide/Formoterol 160/4.5 6 GM 60 PUFF INH IH (20:31)
[2024-07-01 23:50] VITALS: BP 131/82; PULSE 63; RESP 18; TEMP 36; O2SAT 98
[2024-07-02] MEDS: diazePAM 5 MG TAB 10 MG PO ×2 (01:41→10:00)
[2024-07-02 05:37] VITALS: BP 94/69; PULSE 52; RESP 16; TEMP 36.3; O2SAT 92
[2024-07-02] MEDS: Levothyroxine 75 MCG TAB 150 MCG PO (05:43)
--- NOTE | 2024-07-02 09:41 | PDOC.CMPRO ---
Date of service: 07/02/24 Time of Service: 09:42 Care Management Progress Note Discharge Potential Discharge Needs: PCP F/U Appt Anticipated Barriers to Discharge: None Identified Patient/Family Education Needs: Review discharge instructions, discuss Ask Me Three Transportation: [facility] Plan: Anticipate, Cameron will discharge home, with no new services, when medically ready. He will follow up with his community providers and plan of care and transport via [facility] or private vehicle.t yesterday, and cleared from a mental health standpoint. CM will follow and continue to support discharge planning efforts.. SDOH(Care Management) Screening Will the Patient Participate in the Screening?: Yes Do you worry about having a steady place to live?: no Problems where you live: no known problems In the past 12 months, have you had to go without electric, gas, oil or water in your home?: no Have you or anyone in your house had to go without enough food to eat?: no Has lack of transportation kept you from medical appointments or from doing things needed for daily living?: no Has anyone in your support network made you feel unsafe for any reason?: no Social Determinants of Health Comments(SDOH Details): worry d/t being in here for income
[2024-07-02] MEDS: Buprenorphine/Naloxone 12 mg/3 mg FILM 1 EACH SL (09:59)
[2024-07-02] MEDS: Cholecalciferol (Vitamin D3) 1,000 UNIT TAB 5000 UNITS PO (10:00)
[2024-07-02] MEDS: Gabapentin 800 MG TAB PO (10:00)
[2024-07-02] MEDS: Metoprolol CR 50 MG TABCR PO (10:01)
[2024-07-02] MEDS: Cyanocobalamin 500 MCG TAB 1000 MCG PO (10:01)
[2024-07-02] MEDS: Normal Saline Flush 10 ML SYR IVP (10:02)
[2024-07-02 12:02] VITALS: BP 135/91; PULSE 60; RESP 18; TEMP 36; O2SAT 98
--- NOTE | 2024-07-02 13:37 | W.PM.DS.N ---
Date of service: 07/02/24 Time of Service: 13:37 DS: Diagnosis Discharge Diagnosis (1) Benzodiazepine withdrawal: Status: Acute Asessment and Plan: Patient will be under the care of America Benjamin for rapid benzodiazepine withdrawal. I discussed with her the plans. Will be providing patient with no medications at the time of discharge. He will get daily meds at a [facility] pharmacy [facility] (2) Hypertension: Asessment and Plan: labile secondary to stress (3) Anxiety: Status: Chronic Asessment and Plan: labile secondary to stress (4) Alcohol withdrawal: Status: Acute Asessment and Plan: ongoing at this time (5) Bipolar depression: Status: Acute Asessment and Plan: labile (6) Left ulnar fracture: Status: Acute Asessment and Plan: instructed to wear sling (7) Alcohol abuse: Status: Chronic Asessment and Plan: potential exists for continued abuse (8) Opioid use disorder, moderate, in sustained remission, dependence: Asessment and Plan: on suboxone (9) Allergic rhinitis: Status: Acute Asessment and Plan: antihistamines to continue (10) DVT prophylaxis: Status: Acute Asessment and Plan: resolved Discharge Plan Disposition Patient Disposition: Home Condition: Fair Discharge Details Reason For Visit: Benzodiazepine/alcohol withdrawal Admit Date/Time: 06/25/24 14:19 Admit Provider: Cameron Garza Attending Provider: Cameron Garza [facility] Hospital Course: Patient was admitted with anxiety and need for benzodiazepine withdrawal. He has been consuming large volumes acquired from various sources. He was given Ativan based on CIWA scores and switched to diazepam in anticipation of discharge under the care of [facility] for rapid wean of the benzodiazepines. I spoke with America wyatt who is following him in clinic. He will be on daily prescriptions of medications as an outpatient where he will get 1 day's worth of medicine including a benzodiazepine, Suboxone and propranolol and possibly another agent under their direction. We are requested to provide him with no medications at time of discharge. No other medical issues were identified except the patient's extreme anxiety and mental fragility during this hospitalization. Home Meds and New Rx's Prescriptions: Continued fluticasone propion-salmeterol [Advair HFA] 230-21 mcg/actuation HFA aerosol inhaler 2 puff inhalation BID fluticasone propionate [Allergy Relief (fluticasone)] 50 mcg/actuation spray,suspension 1 spray intranasal BID Rx Instructions: administer into each nostril as needed. gabapentin 400 mg capsule 400 mg PO TID ipratropium bromide 42 mcg (0.06 %) spray,non-aerosol 2 spray intranasal BID Rx Instructions: administer into each nostril ipratropium bromide 0.02 % solution 2.5 ml inhalation BID levothyroxine 150 mcg tablet 150 mcg PO DAILY lithium carbonate 450 mg tablet extended release 450 mg PO DAILY metoprolol succinate 50 mg tablet extended release 24 hr 100 mg PO DAILY albuterol sulfate [ProAir HFA] 90 mcg/actuation HFA aerosol inhaler 2 puff inhalation Q4H mecobalamin (vitamin B12) 1,000 mcg tablet,chewable 1,000 mcg PO DAILY cholecalciferol (vitamin D3) 125 mcg (5,000 unit) capsule 125 mcg PO DAILY ketoconazole 2 % cream 1 applic topical DAILY Qty: 120 6RF Rx Instructions: Apply to toenails once daily olanzapine 5 mg tablet 5 mg PO HS PRN Patient Comments: TAKE ONE TO TWO TABLETS BY MOUTH AT BEDTIME NEEDED diphenhydramine HCl [Nightime Sleep] 50 mg capsule 50 mg PO QHS Discontinued clonazepam 1 mg tablet 1 mg PO DAILY buprenorphine-naloxone [Suboxone] 8-2 mg film 1 film buccal HS buprenorphine-naloxone 12-3 mg film 1 film sublingual .Morning Patient Comments: PLACE ONE FILM UNDER THE TONGUE EVERY MORNING FOR 14 DAYS Discharge Instructions Referrals: Jozef Macedo MD [ [facility] STAFF PHYSICIAN] - 07/09/24 10:30 am America Ponce [ NON-[facility] STAFF PHYSICIAN] - (please follow up immediately with America Ponce) Activity:: Activity as Tolerated Equipment/Supplies:: No Equipment Needed Diet:: As Tolerated Discharge Orders Discharge Orders: Discharge Order (Routine); Ordered 07/02/24 Ordered By: Omega Guevara DS: Summary Time Spent with Patient providing and/or coordinating discharge services: Greater than 30 minutes Status at Discharge Functional status at discharge: independent ambulation Overall status at discharge: patient is back to baseline Mental Status: mental status grossly normal Speech and Movement: speech and movement normal Mood: congruent mood and anxious mood Affect: anxious affect Quality:SDOH Health Related Social Needs: No Data to Display Exam Narrative Exam Narrative: GEN: Awake and alert, anxious. HEENT: Conjunctiva clear, no icterus, MMM LUNGS: CTAB with normal effort CV: RRR with no murmurs, gallops, or rubs. ABD: active bowel sounds, soft, nontender and nondistended. No masses. EXT: no cyanosis, clubbing, or edema MSK: Left elbow tender, mild swelling, he is not able to extend past 20 degrees due to pain. not hot/red NEURO: nl sensation and movement of right hand. tremor as above. PSYCH: Depressed and anxious mood and affect. normal thought process, no hallucinations Psych Mental Status: mental status grossly normal Speech and Movement: speech and movement normal Mood: congruent mood and anxious mood Affect: anxious affect DS: Data Vitals/I&O Vitals and I&O: Vital Signs Temperature 36.0 C L 07/02/24 12:02 Temperature Source Temporal Artery Scan 07/02/24 12:02 Pulse 60 07/02/24 12:02 Pulse Rhythm Regular 06/25/24 15:59 Pulse 57 L 06/25/24 15:40 Respiratory Rate 18 07/02/24 12:02 Respiratory Effort Normal, Non-Labored 06/25/24 15:59 Respiratory Depth Normal 06/25/24 15:59 Respiratory Pattern Normal 06/25/24 15:59 Blood Pressure 135/91 H 07/02/24 12:02 Blood Pressure Mean 105 06/25/24 13:16 Pulse Oximetry 98 07/02/24 12:02 Oxygen Delivery Method Room Air 07/02/24 12:02 Oxygen Flow Rate 0 07/02/24 12:02 Pain Level 2 07/02/24 10:00 Comment MAP = 77. pt in =asleep 07/02/24 05:37 Intake & Output 07/01/24 07/02/24 07/02/24 23:59 11:59 23:59 Intake Total 226 / 226 480 / 480 Balance 226 / 226 480 / 480 Intake: Oral 226 / 226 480 / 480 PFSH All Active Problems Anxiety (Chronic) Left ulnar fracture (Acute) DVT prophylaxis (Acute) Elbow pain, left (Acute) Bipolar depression (Acute) Benzodiazepine withdrawal (Acute) Alcohol withdrawal (Acute) Alcohol abuse (Chronic) Nail dystrophy (Acute) Onychomycosis (Acute) Neuropathy (Acute) Toenail fungus (Acute) Right flank pain (Acute) Restless legs (Acute) Recurrent major depressive disorder (Acute) Psychophysiologic insomnia (Acute) Allergic rhinitis (Acute) Alcoholism in remission (Acute) Medical History Hypertension Opioid use disorder, moderate, in sustained remission, dependence Amputation finger Suicide attempt Surgical History Hx of circumcision Social History Smoking/Tobacco Use Status: Former Tobacco Use tobacco type: cigarettes Quit Date: 09/10/17 Smoking risk assessment performed?: Yes Alcohol Intake: current Alcohol Intake frequency: 3 or more drinks per day Alcohol type: hard liquor Drug use: Daily Substance use type: sedatives Details: pt reports he drinks 1 pint of vodka every day Housing: apartment Do you feel safe at home: Yes Do you feel safe in your relationship?: Yes Additional Social history: works at [employer] Time Spent with Patient Time Spent with Patient: <45 minutes Time was spent: preparing to see the patient(eg.review tests), obtaining and/or reviewing separately otained hiistory, ordering medications,tests, procedures, referring, communicating with other health customer care representative, indepentently interpreting results, counseling the patient and care coordination
--- NOTE | 2024-07-02 14:17 | PTTR_ITS ---
PT Notes Visit Reasons: Benzodiazepine/alcohol withdrawal Inpatient Physical Therapy Treatment Note [facility] Date: 07/02/24 PRECAUTIONS:Standard SUBJECTIVE: PPt reports he is going home today OBJECTIVE: ? Therapeutic Exercises ([id number]): Direct one-on-one instruction in therapeutic exercises to develop strength, endurance, range of motion and flexibility. ? Exercises ?AROM elbow extension, supination /pronation table top, ulnar and radial deviation x 10 reps added wrist flexion and extension x 10 reps Access Code: [email or web address] URL: [email or web address] Date: 07/02/2024 Prepared by: Kathia Franklin Exercises - Seated Forearm Pronation and Supination AROM - 3 x daily - 7 x weekly - 3 sets - 10 reps - 5 sec hold - Seated Elbow Flexion and Extension AROM - 3 x daily - 7 x weekly - 3 sets - 10 reps - 5 sec hold - Wrist Extension AROM - 1 x daily - 7 x weekly - 3 sets - 10 reps - 5 sec hold - Wrist Flexion AROM - 3 x daily - 7 x weekly - 3 sets - 10 reps - 5 sec hold - Wrist Radial Ulnar Deviation AROM - 3 x daily - 7 x weekly - 3 sets - 10 reps - 5 sec hold ASSESSMENT:? Pt demonstrates ability to perform HEP Independently with written instructions. He has Ortho f/u on 07/09/24. PLAN: Cont skilled PT 1x/day for pain management AROM left elbow. TREATMENT CODE/TIME: [id number] 15 mins for 1 unit 1358-1026 DISCHARGE RECOMMENDATION: Outpatient PT for left elbow strengthening as indicated.
--- NOTE | 2024-07-02 15:24 | PDOC.CMDIS ---
Date of service: 07/02/24 Time of Service: 15:24 LACE Index Scoring Tool Questions: Length of Stay (in days): 7 - 13 Was the patient admitted via the E.D.?: Yes E.D. Visits: 1 Answers: Total Score: 9 Risk of Readmission: Low Risk Care Management Discharge Plan Reason for Hospitalization: benzodiazepine withdrawal Discharge Plan: Cameron will be discharged home with no new services. He will follow up with his community providers and plan of care and transport with a friend. Patient/Family Education Needs: Review discharge instructions, limitations, follow up plan and discuss [facility] Health Related Social Needs: No Data to Display
== END 2024-07-02 14:13 | disposition home or self-care (01) | DRG 897 ==
LOC: ER 14:54 → MS 15:57
PROVIDERS: Admitting Provider Family Medicine; Emergency Provider Physician Assistant; PCP Nurse Practitioner Family; Visit Provider Family Medicine
DX: F13.939 Sedative, hypnotic or anxiolytic use, unspecified with withdrawal, unspecified (principal); F11.20 Opioid dependence, uncomplicated; F10.139 Alcohol abuse with withdrawal, unspecified; I10 Essential (primary) hypertension; J30.9 Allergic rhinitis, unspecified; F41.9 Anxiety disorder, unspecified; B35.1 Tinea unguium; G62.9 Polyneuropathy, unspecified; G25.81 Restless legs syndrome; F51.04 Psychophysiologic insomnia; Z87.891 Personal history of nicotine dependence; F31.9 Bipolar disorder, unspecified; S52.042A Displaced fracture of coronoid process of left ulna, initial encounter for closed fracture; X58.XXXA Exposure to other specified factors, initial encounter
CPT/HCPCS: 00123; 36415; 80053; 80307; 94640; 96361; 96374; 96376; 97110; 97116; 97161; 97530; 99222; 99285; 73080; 80178; 80320; 80329; 83735; 84443; 85025; 85610; 94664; 99223; 99231; 99232; 99239; J2060; J3490

== ENCOUNTER 2024-07-09 10:45 | Outpatient (CLI) | payer MEDICARE, SELFPAY ==
--- NOTE | 2024-07-09 11:10 | DI.RAD_ITS ---
Exam(s) XR ELBOW LT LIMITED EXAM: XR ELBOW LT LIMITED CLINICAL HISTORY: LEFT ELBOW PAIN. TECHNIQUE: 2D digital imaging was performed. Two views. COMPARISON: CR XR ELBOW LT COMPLETE from 06/26/2024 FINDINGS: BONES: The previously noted fracture through the coronoid process ulna is not as well seen, partially obscured by overlap from the radial head. It remains nondisplaced. No bony destructive lesion is s een. JOINTS: The elbow is normally aligned. joint effusion is seen. SOFT TISSUE: Normal. IMPRESSION: Stable fracture alignment. DATA REPOSITORY: RADIATION DOSE DELIVERED:
== END 2024-07-09 10:46 | disposition home or self-care (01) ==
LOC: DIORS 07-10 07:58
PROVIDERS: PCP Nurse Practitioner Family; Referring Provider Nurse Practitioner Family; Visit Provider Student in an Organized Health Care Education/Training Program
DX: S52.202A Unspecified fracture of shaft of left ulna, initial encounter for closed fracture; X58.XXXA Exposure to other specified factors, initial encounter
CPT/HCPCS: 99213; 73070